=== PATIENT | female | born 1990 | race Caucasian/White ===

== ENCOUNTER 2016-08-04 00:47 | Emergency (ER) | payer SELFPAY ==
[2016-08-04 01:24] VITALS: BP 114/65
== END 2016-08-04 05:52 | disposition left against medical advice (07) ==
LOC: ER 00:47
DX: Z53.9 Procedure and treatment not carried out, unspecified reason (principal); M25.511 Pain in right shoulder

== ENCOUNTER 2016-08-20 08:38 | Emergency (ER) | payer SELFPAY ==
--- NOTE | 2016-08-20 09:43 | ER Document Report ---
ED GI/ - General Chief Complaint: Vaginal Bleeding Stated Complaint: VAGINAL BLEEDING Notes: The patient is a 26-year-old female presents with 2 days of increasing vaginal bleeding and passing clots. She had a positive test last week and her blood type is A-. She is also feeling slightly lightheaded. Patient is actively bleeding while in the emergency room. Denies nausea, vomiting, fevers , urinary symptoms, flank pain or rash. I have greeted and performed a rapid initial assessment of this patient. A comprehensive ED assessment and evaluation of the patient, analysis of test results and completion of the medical decision making process will be conducted by additional ED providers. TRAVEL OUTSIDE OF THE U.S. IN LAST 30 DAYS: No - Related Data Allergies/Adverse Reactions: hydrocodone [Hydrocodone] Allergy (Verified 04/09/14 16:33) Hives Past Medical History - General Information source: Patient Last Menstrual Period: 07/13/16 - Social History Smoking Status: Unknown if Ever Smoked Family History: Reviewed & Not Pertinent Renal/ Medical History: Denies: Hx Peritoneal Dialysis Psychiatric Medical History: Reports: Hx Anxiety, Hx Attention Deficit Hyperactivity Disorder Traumatic Medical History: Reports: Hx Fractures Past Surgical History: Reports: Hx Section - Immunizations Immunizations up to date: Yes Hx Diphtheria, Pertussis, Tetanus Vaccination: No Physical Exam - Vital signs Vitals: Temp Pulse Resp BP Pulse Ox 97.8 F 84 16 141/81 H 98 08/20/16 08:40 08/20/16 08:40 08/20/16 08:40 08/20/16 08:40 08/20/16 08:40 Course - Vital Signs Vital signs: Temp Pulse Resp BP Pulse Ox 97.6 F 66 16 121/62 97 08/20/16 12:58 08/20/16 12:58 08/20/16 12:58 08/20/16 12:58 08/20/16 12:58 - Laboratory Laboratory results interpreted by me: 08/20/16 08:48 Urine Protein 100 H Urine Blood LARGE H Discharge - Discharge Clinical Impression: Dysfunctional uterine bleeding Condition: Stable Disposition: HOME, SELF-CARE Instructions: Dysfunctional Uterine Bleeding ([facility]) Additional Instructions: Follow-up with gynecology for irregular menstrual bleeding. It is important that you tell your sexual partner about your recent diagnosis of Trichomonas and that they can be treated. Return for worsening bleeding, fevers, or other worrisome symptoms. Forms: Parent Work Note Referrals: LISA GUZMAN, [RUTHY DOSHI] - Follow up as needed
[2016-08-20 10:02] LABS: APPEARANCE,URINE CLOUDY; BILIRUBIN,URINE NEGATIVE (NEGATIVE); GLUCOSE, URINE NEGATIVE (NEGATIVE); KETONES,URINE NEGATIVE (NEGATIVE); LEUKOCYTE ESTERASE,URINE NEGATIVE (NEGATIVE); NITRITE,URINE NEGATIVE (NEGATIVE); PROTEIN,URINE 100 mg/dL (NEGATIVE); URINE SPECIFIC GRAVITY 1.029; UROBILINOGEN,URINE NEGATIVE mg/dL (<2.0)
--- NOTE | 2016-08-20 11:13 | ER Document Report ---
ED GI/ - General Mode of Arrival: Ambulatory Information source: Patient TRAVEL OUTSIDE OF THE U.S. IN LAST 30 DAYS: No - HPI Patient complains to provider of: Other Timing/Duration: Persistent Quality of pain: No pain Similar symptoms previously: Yes Recently seen / treated by doctor: Yes - General Chief Complaint: Vaginal Bleeding Stated Complaint: VAGINAL BLEEDING Notes: Patient is a 26-year-old female that presents to the emergency department today with complaints of vaginal bleeding for two weeks. Patient states that she was seen at a hospital in [place] initially and she was told she was or could be miscarrying. Patient states that 3 days ago she followed up at [facility], she was told she was not but she continued to bleed. Patient presents today complaining of persistent "bright red" blood. Patient is . Patient states she has had urinary frequency. Patient also adds that she was diagnosed with trichomonas 2 weeks ago in [place] however she has not taken any of the medications that she was prescribed because she cannot afford them. Patient denies any nausea, vomiting, or diarrhea. (FELIZ GRIFFITH) - Related Data Allergies/Adverse Reactions: hydrocodone [Hydrocodone] Allergy (Verified 04/09/14 16:33) Hives Past Medical History - General Information source: Patient Last Menstrual Period: 07/13/16 - Social History Smoking Status: Current Every Day Smoker Cigarette use (# per day): Yes Frequency of alcohol use: Social Drug Abuse: Marijuana Lives with: Family Family History: Reviewed & Not Pertinent Psychiatric Medical History: Reports: Hx Anxiety, Hx Attention Deficit Hyperactivity Disorder Traumatic Medical History: Reports: Hx Fractures Past Surgical History: Reports: Hx Section - Immunizations Immunizations up to date: Yes Hx Diphtheria, Pertussis, Tetanus Vaccination: No Review of Systems - Review of Systems Constitutional: No symptoms reported EENT: No symptoms reported Cardiovascular: No symptoms reported Respiratory: No symptoms reported Gastrointestinal: denies: Diarrhea, Nausea, Vomiting Genitourinary: See HPI, Frequency Female Genitourinary: See HPI, Last menstrual period - First week of July, - ?, Vaginal bleeding Musculoskeletal: No symptoms reported Skin: No symptoms reported Hematologic/Lymphatic: No symptoms reported Neurological/Psychological: No symptoms reported -: Yes All other systems reviewed and negative Physical Exam - Vital signs Vitals: Temp Pulse Resp BP Pulse Ox 97.8 F 84 16 141/81 H 98 04/13/17 08:40 08/20/16 08:40 08/20/16 08:40 08/20/16 08:40 08/20/16 08:40 - Notes Notes: Physical Exam: General: Alert, appears well. HEENT: Normocephalic. Atraumatic. PERRL. Extraocular movements intact. Oropharynx clear. Neck: Supple. Non-tender. Respiratory: No respiratory distress. Clear and equal breath sounds bilaterally. Cardiovascular: Regular rate and rhythm. Abdominal: Normal Inspection. Non-tender. No distension. Normal Bowel Sounds. Extremities: Moves all four extremities. Upper extremities: Normal inspection. Normal ROM. Lower extremities: Normal inspection. No edema. Normal ROM. Neurological: Normal cognition. AAOx4. Normal speech. Psychological: Normal affect. Normal Mood. Skin: Warm. Dry. Normal color. (FELIZ GRIFFITH) Course - Re-evaluation Re-evalutation: 08/20/16 11:15 08/20/16 12:33 Patient reports she has irregular bleeding with cramps. Her last menstrual period was at beginning of July. She said about 10 days ago she started having some bleeding so she went to an outside hospital who diagnosed her with Trichomonas and said that her test was positive. The patient followed up with [facility] last week and they did a blood test and told her that she was not . Patient says that she continues to have some bleeding with some clots and that she is sure that she is having a miscarriage. She is not using more than 1 pad every 2-3 hours. She has been working and has taken time off for medical evaluation and states she can't miss any more work or she will lose her job. The patient states that she did not get the prescription filled for the Trichomonas because all of her money went to her rent. The patient denies any fevers chills or sweats. No nausea vomiting diarrhea. Patient has had some lower abdominal cramping and low back pain. Patient says she has chronic back pain and this feels a little more crampy. The patient denies any vaginal discharge. On exam, patient alert and oriented in no distress vital signs the patient is afebrile nontoxic appearing. She is hemodynamically stable. Patient with nontender abdominal exam normal bowel sounds no peritoneal findings. Her exam is otherwise unremarkable. Medical decision making: Patient just had a pelvic exam 10 days ago and was diagnosed with Trichomonas and did not fill her prescription. We will give her a one-time Flagyl dose of 2 g here in the emergency department to treat this and she has been counseled to talk to her sexual partner in order to have him treated as well. The patient also has a negative beta Quant. There is no evidence of the patient was ever in the last several days. This was discussed with the patient. Pelvic exam was deferred as patient just had pelvic exam 3 days ago, she does not have any sidedness to her crampy pain, and has limited bleeding which seems most likely to be a menstrual period .We discussed dysfunctional uterine bleeding and need for follow-up with gynecology should she continue to have problems with her periods. She indicates that she is not on any hormones and has never taken the Depo shot previously. She will follow-up with [facility] [employer] [facility]. 08/20/16 12:37 (LUPIS RASMUSSEN) - Vital Signs Vital signs: Temp Pulse Resp BP Pulse Ox 98.4 F 84 18 141/81 H 98 08/20/16 11:11 08/20/16 08:40 08/20/16 10:11 08/20/16 08:40 08/20/16 08:40 - Laboratory Laboratory results interpreted by me: 08/20/16 08:48 Urine Protein 100 H Urine Blood LARGE H Discharge - Discharge Clinical Impression: Dysfunctional uterine bleeding Condition: Stable Disposition: HOME, SELF-CARE Instructions: Dysfunctional Uterine Bleeding ([facility]) Additional Instructions: Follow-up with gynecology for irregular menstrual bleeding. It is important that you tell your sexual partner about your recent diagnosis of Trichomonas and that they can be treated. Return for worsening bleeding, fevers, or other worrisome symptoms. Forms: Parent Work Note Referrals: LISA GUZMAN, [RUTHY DOSHI] - Follow up as needed Scribe Attestation: 08/20/16 12:33 I personally performed the services described in the documentation, reviewed and edited the documentation which was dictated to the scribe in my presence, and it accurately records my words and actions. (LUPIS RASMUSSEN) Scribe Documentation - Scribe Written by Bao:: Bao Forrest, 08/20/2016 [id number] acting as scribe for :: Anders
[2016-08-20] MEDS ORDERED: METRONIDAZOLE 500 MG TABLET PO ONE (11:14)
[2016-08-20 12:59] VITALS: BP 121/62
== END 2016-08-20 13:00 | disposition home or self-care (01) ==
LOC: ER 08:38
DX: N93.8 Other specified abnormal uterine and vaginal bleeding (principal); M54.5 Low back pain
CPT/HCPCS: 36415; 81001; 81025; 84702; 86900; 86901; 99284

== ENCOUNTER 2016-08-21 19:13 | Emergency (ER) | payer SELFPAY ==
--- NOTE | 2016-08-21 20:33 | ER Document Report ---
ED Medical Screen (RME) - General Chief Complaint: Abdominal Pain Stated Complaint: DIFFICULTY BREATHING Notes: I have briefly seen and evaluated this patient in my role as physician in triage. I have initiated orders based on this initial evaluation. Please see my colleague's documentation for complete history, physical, management, diagnosis , and ultimate disposition. My brief evaluation: Patient presents stating that she was here yesterday for passing blood clots and concern for . This is now the fourth time that she has been seen by medical providers in the past 10 days. She has had 3 tests that have been negative including a serum quantitative yesterday. The patient brings a picture in of blood clots that she thinks are tissue. The patient is convinced that she is passing tissue. She has had some lower abdominal cramping. Yesterday she told us she was diagnosed with Trichomonas at a women[facility] clinic last week and was given a prescription for Flagyl but she did not fill it because she didn't have any money so yesterday we treated her with 2 g of Flagyl one time dose. She was not bleeding significantly yesterday and did not undergo another pelvic exam after it was found that she had a negative serum Quant. Given the patient is presenting yet again and now is presenting us with pictures of her blood clots, I believe the pelvic examination and pelvic ultrasound are warranted in order to definitively rule out any cause of menorrhagia and dysmenorrhea that may require intervention. TRAVEL OUTSIDE OF THE U.S. IN LAST 30 DAYS: No - Related Data Allergies/Adverse Reactions: hydrocodone [Hydrocodone] Allergy (Verified 08/21/16 20:14) Hives Past Medical History Renal/ Medical History: Denies: Hx Peritoneal Dialysis Psychiatric Medical History: Reports: Hx Anxiety, Hx Attention Deficit Hyperactivity Disorder Traumatic Medical History: Reports: Hx Fractures Past Surgical History: Reports: Hx Section - Immunizations Immunizations up to date: Yes Hx Diphtheria, Pertussis, Tetanus Vaccination: No Physical Exam - Vital signs Vitals: Temp Pulse Resp BP Pulse Ox 98.1 F 62 16 124/76 98 08/21/16 20:02 08/21/16 20:02 08/21/16 20:02 08/21/16 20:02 08/21/16 20:02 Course - Vital Signs Vital signs: Temp Pulse Resp BP Pulse Ox 98.1 F 62 16 124/76 98 08/21/16 20:02 08/21/16 20:02 08/21/16 20:02 08/21/16 20:02 08/21/16 20:02
[2016-08-21 21:00] LABS: ABSOLUTE BASOPHILS # (AUTO) 0.1 10^3/uL (0.0-0.2); ABSOLUTE EOSINOPHILS # (AUTO) 0.1 10^3/uL (0.0-0.6); ABSOLUTE LYMPHOCYTES (AUTO) 2.9 10^3/uL (0.5-4.7); ABSOLUTE MONOCYTES (AUTO) 0.7 10^3/uL (0.1-1.4); BASOPHILS % (AUTO) 0.6 % (0-2); EOSINOPHILS % (AUTO) 1.3 % (0-6); HEMATOCRIT 38.3 % (36.0-47.0); HEMOGLOBIN 12.7 g/dL (12.0-15.5); HGB HCT DIFFERENCE -0.2; LYMPHOCYTES % (AUTO) 26.6 % (13-45); MEAN CORPUSCULAR HEMOGLOBIN 27.9 pg (27.0-33.4); MEAN CORPUSCULAR HGB CONC 33.2 g/dL (32.0-36.0); MEAN CORPUSCULAR VOLUME 84 fl (80-97); MONOCYTES % (AUTO) 6.6 % (3-13); RED BLOOD COUNT 4.56 10^6/uL (3.72-5.28); RED CELL DISTRIBUTION WIDTH 16.6 % (11.5-14.0); SEGMENTED NEUTROPHILS % (AUTO) 64.9 % (42-78); WHITE BLOOD COUNT 10.7 10^3/uL (4.0-10.5)
--- NOTE | 2016-08-21 21:13 | ER Document Report ---
ED GI/ - General Chief Complaint: Abdominal Pain Stated Complaint: DIFFICULTY BREATHING Notes: The patient is a 26-year-old female who presents by EMS after she passed two clots from her vagina. She was told that she was 2 weeks ago and that she may have had a miscarriage. She was seen in the emergency room yesterday, received Rhogam and discharged home after a negative test. She does not have money to see an OB. Today, she started to feel shaky, lightheaded, had cold sweats and clammy hands. This has resolved. She denies nausea, vomiting, abdominal pain, dysuria, flank pain, fevers, chest pain, current shortness of breath, leg swelling or hemoptysis. TRAVEL OUTSIDE OF THE [place].S. IN LAST 30 DAYS: No - Related Data Allergies/Adverse Reactions: hydrocodone [Hydrocodone] Allergy (Verified 08/21/16 20:14) Hives Past Medical History - General Information source: Patient - Social History Smoking Status: Unknown if Ever Smoked Family History: Reviewed & Not Pertinent Patient has suicidal ideation: No Patient has homicidal ideation: No Renal/ Medical History: Denies: Hx Peritoneal Dialysis Psychiatric Medical History: Reports: Hx Anxiety, Hx Attention Deficit Hyperactivity Disorder Traumatic Medical History: Reports: Hx Fractures Past Surgical History: Reports: Hx Section - Immunizations Immunizations up to date: Yes Hx Diphtheria, Pertussis, Tetanus Vaccination: No Review of Systems - Review of Systems Notes: REVIEW OF SYSTEMS: CONSTITUTIONAL: -fevers, -chills EENT: -eye pain, -difficulty swallowing, -nasal congestion CARDIOVASCULAR:-chest pain, -syncope. RESPIRATORY: -cough, -SOB GASTROINTESTINAL: -abdominal pain, -nausea, -vomiting, -diarrhea GENITOURINARY: -dysuria, -hematuria, +vaginal bleeding MUSCULOSKELETAL: -back pain, -neck pain SKIN: -rash or skin lesions. HEMATOLOGIC: -easy bruising or bleeding. LYMPHATIC: -swollen, enlarged glands. NEUROLOGICAL: -altered mental status or loss of consciousness, -headache, - neurologic symptoms PSYCHIATRIC: -anxiety, -depression. ALL OTHER SYSTEMS REVIEWED AND NEGATIVE. Physical Exam - Vital signs Vitals: Temp Pulse Resp BP Pulse Ox 98.1 F 62 16 124/76 98 08/21/16 20:02 08/21/16 20:02 08/21/16 20:02 08/21/16 20:02 08/21/16 20:02 - Notes Notes: PHYSICAL EXAMINATION: GENERAL: Well-appearing, well-nourished and in no acute distress. HEAD: Atraumatic, normocephalic. EYES: Pupils equal round and reactive to light, extraocular movements intact, sclera anicteric, conjunctiva are normal. ENT: nares patent, oropharynx clear without exudates. Moist mucous membranes. NECK: Normal range of motion, supple without lymphadenopathy LUNGS: Breath sounds clear to auscultation bilaterally and equal. No wheezes rales or rhonchi. HEART: Regular rate and rhythm without murmurs ABDOMEN: Soft, nontender, normoactive bowel sounds. No guarding, no rebound. No masses appreciated. EXTREMITIES: Normal range of motion, no pitting or edema. No cyanosis. NEUROLOGICAL: Cranial nerves grossly intact. Normal speech, normal gait. Normal sensory, motor, and reflex exams. PSYCH: Normal mood, normal affect. SKIN: Warm, Dry, normal turgor, no rashes or lesions noted. Course - Re-evaluation Re-evalutation: Patient without any orthostatic changes and she is asymptomatic at this time. No active vaginal bleeding. test completed yesterday is negative. Her hemoglobin is 12.7. Instructed her to follow-up with the [facility]. Ultrasound ordered from triage is normal. - Vital Signs Vital signs: Temp Pulse Resp BP Pulse Ox 98.1 F 62 16 121/77 98 08/21/16 20:02 08/21/16 20:02 08/21/16 20:02 08/21/16 21:16 08/21/16 20:02 - Laboratory Result Diagrams: 08/21/16 20:47 Laboratory results interpreted by me: 08/21/16 08/21/16 20:47 22:45 WBC 10.7 H RDW 16.6 H Urine Protein 100 H Urine Ketones TRACE H Urine Blood LARGE H Ur Leukocyte Esterase SMALL H - Diagnostic Test Radiology reviewed: Image reviewed, Reports reviewed Radiology results interpreted by me: US Pelvis: NAD Discharge - Discharge Clinical Impression: Vaginal bleeding Condition: Good Disposition: HOME, SELF-CARE Additional Instructions: VAGINAL BLEEDING: You are having an episode of abnormal bleeding. Causes of abnormal vaginal bleeding can include miscarriage or tubal , tumors such as cancer or benign fibroids, medication effects, or hormone imbalance. Testing can eliminate unsuspected , tumors, or infection as a cause. "Dysfunctional uterine bleeding" is due to hormone imbalance, and is especially common at times when the normal cycle is disturbed -- whether by recent , use of control pills or hormones, or impending menopause. If the bleeding is innocent, most commonly a short course of hormones is given to restore the uterus to normal. Sometimes, the normal menstrual cycle corrects itself naturally. Sometimes , brief hormone therapy, or even a D&C is required. Your physician will advise you. Treatment for anemia may be required if bleeding is severe. You should rest and avoid intercourse until the bleeding is controlled. Call the doctor or return for re-examination if you feel faint, have increasing pain, or have a major increase in the amount of bleeding. NORMAL EXAM AND WORKUP: At this time, except for vaginal bleeding, your examination and workup show no significant abnormality. No significant abnormal physical findings were noted. All laboratory, EKG, and imaging (x-ray, CT scans, ultrasound) studies that were ordered show no significant abnormality. Although your examination and all studies that were ordered showed no significant abnormal finding, there are no examinations and no studies that are 100% accurate. There is always the possibility that some abnormality could exist and not be detected with physical examination or within the limits and capabilities of laboratory and other studies. You should return or follow up as you were instructed on your visit today for further evaluation if your symptoms do not resolve. FOLLOW-UP CARE: If you have been referred to a physician for follow-up care, call the physician s office for an appointment as you were instructed or within the next two days. If you experience worsening or a significant change in your symptoms (very heavy bleeding with large clots of blood, passage of tissue, more severe abdominal / pelvic pain or cramping, feeling faint or severe weakness, fever, etc.), notify the physician immediately or return to the Emergency Department at any time for re-evaluation. OBSTETRIC-GYNECOLOGIC (OB-GROCERY CLERK STOCKING) PHYSICIANS IN [place]: [facility] [address] [place], [place] [phone] [facility] [address] [place] [address] [phone] Referrals: CRISPIN LI MD [ACTIVE STAFF] - Follow up as needed
[2016-08-21 22:59] LABS: APPEARANCE,URINE SLIGHTLY-CLOUDY; BILIRUBIN,URINE NEGATIVE (NEGATIVE); GLUCOSE, URINE NEGATIVE (NEGATIVE); KETONES,URINE TRACE mg/dL (NEGATIVE); LEUKOCYTE ESTERASE,URINE SMALL (NEGATIVE); NITRITE,URINE NEGATIVE (NEGATIVE); PROTEIN,URINE 100 mg/dL (NEGATIVE); URINE SPECIFIC GRAVITY 1.002; UROBILINOGEN,URINE NEGATIVE mg/dL (<2.0)
[2016-08-22 00:28] VITALS: BP 122/75
== END 2016-08-22 00:12 | disposition home or self-care (01) ==
LOC: ER 19:13
DX: N93.8 Other specified abnormal uterine and vaginal bleeding (principal); R10.9 Unspecified abdominal pain; R06.00 Dyspnea, unspecified; Z88.6 Allergy status to analgesic agent
CPT/HCPCS: 36415; 76857; 81001; 85025; 99284

== ENCOUNTER 2016-09-14 16:53 | Emergency (ER) | payer SELFPAY ==
[2016-09-14] MEDS ORDERED: PENICILLIN V POTASSIUM 500 MG TABLET PO ONE (17:12)
[2016-09-14] MEDS ORDERED: BUPIVACAINE HCL 0.5 % INJ/PF 30 ML SDV INJ ONE (17:12)
[2016-09-14 17:14] VITALS: BP 127/74
--- NOTE | 2016-09-14 17:14 | ER Document Report ---
HPI - HPI Patient complains to provider of: toothache Context: Patient is a 26 year old female who presents with toothache #1 and #32 for 2 days. denies any difficulty swallowing, dyspnea, cough, SOB, difficulty speaking , muffled speech, foul odor or drainage. does not have a dentist No PMH NKDA - REPRODUCTIVE Reproductive: DENIES: : Past Medical History - Social History Smoking Status: Never Smoker Family History: Reviewed & Not Pertinent Renal/ Medical History: Denies: Hx Peritoneal Dialysis Psychiatric Medical History: Reports: Hx Anxiety, Hx Attention Deficit Hyperactivity Disorder Traumatic Medical History: Reports: Hx Fractures Past Surgical History: Reports: Hx Section - Immunizations Immunizations up to date: Yes Hx Diphtheria, Pertussis, Tetanus Vaccination: No Vertical Provider Document - CONSTITUTIONAL Agree With Documented VS: Yes Exam Limitations: No Limitations General Appearance: WD/WN, No Apparent Distress - INFECTION CONTROL TRAVEL OUTSIDE OF THE U.S. IN LAST 30 DAYS: No - HEENT HEENT: Atraumatic, Normocephalic Mouth Diagram: 1 - evidence of fracture and decay with surrounding tenderness, no evidence of abscess Notes: Uvula midline. Airway patent. No evidence of tonsillar enlargement, peritonsillar abscess, retropharyngeal abscess. - RESPIRATORY Respiratory: Breath Sounds Normal, No Respiratory Distress, Chest Non-Tender - CARDIOVASCULAR Cardiovascular: Regular Rate, Regular Rhythm, No Murmur Course - Re-evaluation Re-evalutation: 09/14/16 21:00 Patient received 5 mL of Sensorcaine ducal blocks for both the first in 32nd tooth. Patient responded well to treatment. Will discharge home on antibiotics and pain medication to follow up with dentist Discharge - Discharge Clinical Impression: Toothache Condition: Good Disposition: HOME, SELF-CARE Instructions: Oral Narcotic Medication ([facility]), Penicillin V K ([facility]), Toothache ( [facility]), [facility] Additional Instructions: [address] Wednesday mornings, by appointment [address] [address] [facility] [address] [facility] [address] [facility] [address] [email or web address] [address] [place] [address] Wednesday- 8:00am to 5:00 pm Will see patients from other [facility]. Charges based on income and family size and accepts Medicare, Medicaid, and Insurances Will pull molars [facility] [id number] Hours of Operation 8:00 am - 4:30 pm weekdays The following dental offices accept Medicaid: [facility] Dr. Salcedo Dr. Leahy Dr. Riojas Dr. Peacock Damian Turner, Samantha, and Carlitos oral surgery Dr. Rosa ([place]) Dr. Mccray ([place]) [facility] Drs. Schumacher ([place]) Dr. Sarmiento ([place]) [facility] Dr. Pierre ([place]) Drs. Alegre and ([place]) Medicaid Care Line Prescriptions: Oxycodone HCl/Acetaminophen [Percocet 5-325 mg Tablet] 1 - 2 tab PO Q4H PRN #15 tablet PRN Reason: Penicillin V Potassium [Penicillin Vk 500 mg Tablet] 500 mg PO QID 7 Days
== END 2016-09-14 17:33 | disposition home or self-care (01) ==
LOC: ER 16:53
PROC: 3E0T3BZ Introduction of Anesthetic Agent into Peripheral Nerves and Plexi, Percutaneous Approach (ICD-10-PCS; principal; 2016-09-14)
DX: K02.9 Dental caries, unspecified (principal); K08.89 Other specified disorders of teeth and supporting structures
CPT/HCPCS: 99282

== ENCOUNTER 2016-10-13 11:00 | Emergency (ER) | payer SELFPAY ==
[2016-10-13 11:08] VITALS: BP 126/74
--- NOTE | 2016-10-13 11:18 | ER Document Report ---
HPI - HPI Patient complains to provider of: dental pain Onset: Last week Onset/Duration: Sudden Quality of pain: Throbbing Severity: Severe Pain Level: 5 Associated Symptoms: None Exacerbated by: Food Relieved by: Denies Similar symptoms previously: Yes Recently seen / treated by doctor: Yes - ROS ROS below otherwise negative: Yes Systems Reviewed and Negative: Yes All other systems reviewed and negative - CONSTITUTIONAL Constitutional: DENIES: Fever - EENT EENT: DENIES: Nasal Drainage-Purulent Notes: right lower dental pain - NEURO Neurology: DENIES: Headache - CARDIOVASCULAR Cardiovascular: DENIES: Chest pain - RESPIRATORY Respiratory: DENIES: Trouble Breathing - GASTROINTESTINAL Gastrointestinal: DENIES: Abdominal Pain - REPRODUCTIVE Reproductive: DENIES: : - MUSCULOSKELETAL Musculoskeletal: DENIES: Extremity pain - DERM Skin Color: Normal Skin Problems: None Past Medical History - General Information source: Patient - Social History Smoking Status: Current Every Day Smoker Cigarette use (# per day): Yes Frequency of alcohol use: None Drug Abuse: Marijuana Lives with: Family Family History: Reviewed & Not Pertinent Patient has suicidal ideation: No Patient has homicidal ideation: No Psychiatric Medical History: Reports: Hx Anxiety, Hx Attention Deficit Hyperactivity Disorder Traumatic Medical History: Reports: Hx Fractures Past Surgical History: Reports: Hx Section - Immunizations Immunizations up to date: Yes Hx Diphtheria, Pertussis, Tetanus Vaccination: No Vertical Provider Document - CONSTITUTIONAL Agree With Documented VS: Yes Exam Limitations: No Limitations General Appearance: WD/WN, No Apparent Distress - INFECTION CONTROL TRAVEL OUTSIDE OF THE [place] IN LAST 30 DAYS: No - HEENT HEENT: Atraumatic, Normal ENT Exam Mouth Diagram: 1 - decay, mild gum swelling - NECK Neck: Normal Inspection, Supple - RESPIRATORY Respiratory: Breath Sounds Normal, No Respiratory Distress O2 Sat by Pulse Oximetry: 98 - CARDIOVASCULAR Cardiovascular: Regular Rate, Regular Rhythm - MUSCULOSKELETAL/EXTREMETIES Musculoskeletal/Extremeties: JULIEN ROCHA - NEURO Level of Consciousness: Awake, Alert, Appropriate - DERM Integumentary: Warm, Dry Course - Vital Signs Vital signs: Temp Pulse Resp BP Pulse Ox 98.2 F 71 16 126/74 H 98 10/13/16 11:07 10/13/16 11:07 10/13/16 11:07 10/13/16 11:07 10/13/16 11:07 Discharge - Discharge Clinical Impression: Toothache, Dental caries Condition: Good Disposition: HOME, SELF-CARE Instructions: Toothache ([facility]), Penicillin V K ([facility]), Oral Narcotic Medication ( [facility]) Additional Instructions: OTC ibuprofen 3 times a day as needed for pain Meds as prescribed Must follow-up with the dentist for further evaluation of dental problems. A list of providers is given to you today return as needed. Prescriptions: Oxycodone HCl/Acetaminophen [Percocet 5-325 mg Tablet] 1 - 2 tab PO ASDIR PRN # 10 tablet PRN Reason: Penicillin V Potassium [Penicillin Vk 250 mg Tablet] 250 mg PO Q6 #40 tablet
== END 2016-10-13 11:25 | disposition home or self-care (01) ==
LOC: ER 11:00
DX: K08.89 Other specified disorders of teeth and supporting structures (principal); K02.9 Dental caries, unspecified; F17.210 Nicotine dependence, cigarettes, uncomplicated
CPT/HCPCS: 99282

== ENCOUNTER 2016-11-23 09:48 | Emergency (ER) | payer SELFPAY ==
[2016-11-23 09:53] VITALS: BP 130/80
[2016-11-23] MEDS ORDERED: DIPHENHYDRAMINE HCL 50 MG CAPSULE PO ONE (10:43)
[2016-11-23] MEDS ORDERED: FAMOTIDINE 20 MG TABLET PO ONE (10:43)
--- NOTE | 2016-11-23 10:43 | ER Document Report ---
HPI - HPI Pain Level: 4 Notes: Patient is a 26-year-old female presents the ED complaining of a possible insect bite to her right buttock that she noticed yesterday. Patient states that she has some pruritus and burning to the area without any noted discharge, streaks, abscess. Patient denies any history of MRSA. Patient states that [place] and is surrounded by insects. Patient states that she noticed it when she was laying in her bed. She still eating and drinking without any problems. She has not applied anything to the area or taken any other [id number] meds. Denies any recent travel, sick contacts, or illness. + smoking, denies drug use otherwise. No significant PMH. Denies any fever, headache, URI, sore throat, chest pain, palpitations, syncope, cough , wheeze, shortness breath, dyspnea, abdominal pain, nausea/vomiting/diarrhea, dysuria, joint pains, muscle weakness/paralysis. - ROS Notes: REVIEW OF SYSTEMS: CONSTITUTIONAL : Denies fever, chills, or sweats. Denies recent illness. EENT: Denies eye, ear, throat, or mouth pain or symptoms. Denies nasal or sinus congestion or discharge. Denies throat, tongue, or mouth swelling or difficulty swallowing. CARDIOVASCULAR: Denies chest pain. Denies palpitations or racing or irregular heart beat. Denies ankle edema. RESPIRATORY: Denies cough, cold, or chest congestion. Denies shortness of breath, difficulty breathing, or wheezing. GASTROINTESTINAL: Denies abdominal pain or distention. Denies nausea, vomiting , or diarrhea. Denies blood in vomitus, stools, or per rectum. Denies black, tarry stools. Denies constipation. GENITOURINARY: Denies difficulty urinating, painful urination, burning, frequency, blood in urine, or discharge. MUSCULOSKELETAL: Denies back or neck pain or stiffness. Denies joint pain or swelling. SKIN: see hpi NEUROLOGICAL: Denies confusion or altered mental status. Denies passing out or loss of consciousness. Denies dizziness or lightheadedness. Denies headache. Denies weakness or paralysis or loss of use of either side. Denies problems with gait or speech. Denies sensory loss, numbness, or tingling. ALL OTHER SYSTEMS REVIEWED AND NEGATIVE. Dictation was performed using [employer] voice recognition software - REPRODUCTIVE Reproductive: DENIES: : - DERM Skin Color: Normal Past Medical History - Social History Smoking Status: Current Every Day Smoker Family History: Reviewed & Not Pertinent Patient has suicidal ideation: No Patient has homicidal ideation: No Renal/ Medical History: Denies: Hx Peritoneal Dialysis Psychiatric Medical History: Reports: Hx Anxiety, Hx Attention Deficit Hyperactivity Disorder Traumatic Medical History: Reports: Hx Fractures Past Surgical History: Reports: Hx Section - Immunizations Immunizations up to date: Yes Hx Diphtheria, Pertussis, Tetanus Vaccination: No Vertical Provider Document - CONSTITUTIONAL Agree With Documented VS: Yes Notes: PHYSICAL EXAMINATION: GENERAL: Well-appearing, well-nourished and in no acute distress. NECK: Normal range of motion, supple without lymphadenopathy LUNGS: Breath sounds clear to auscultation bilaterally and equal. No wheezes rales or rhonchi. HEART: Regular rate and rhythm without murmurs, rubs, gallops. ABDOMEN: Soft, nontender, nondistended abdomen. No guarding, no rebound. No masses appreciated. Normal bowel sounds present. No CVA tenderness bilaterally. Musculoskeletal: ext b/l: FROM to passive/active. Strength 5+/5. Extremities: No cyanosis, clubbing, or edema b/l. Peripheral pulses 2+. Capillary refill less than 3 seconds. NEUROLOGICAL: Cranial nerves grossly intact. Normal speech, normal gait. Normal sensory, motor exams PSYCH: Normal mood, normal affect. SKIN: Rt buttock: + erythemic maculopapular area (approx 2cm), without induration, d/c, abscess/streaks noted. + mild tenderness to the erythemic area. Appears to be superficial, no need for I&D at this time. No prox lymphadenopathy. - INFECTION CONTROL TRAVEL OUTSIDE OF THE [place] IN LAST 30 DAYS: No - RESPIRATORY O2 Sat by Pulse Oximetry: 98 Course - Re-evaluation Re-evalutation: 11/23/16 10:50 Patient is an afebrile, well-hydrated, 26-year-old female presents the ED with a superficial, mild cellulitis to the right buttock. ? Insect bite. Vitals are stable. PE otherwise unremarkable. No incision and drainage is warranted at this time. Low suspicion for any necrotizing fasciitis, sepsis, systemic illness, or any noted necrotic tissue. patient notes pruritus and burning to the area. Benadryl 50 mg p.o. along with Pepcid 20 mg p.o. given in the office today. I will send her home with a prescription for Bactrim twice a day for 10 days. Conservative measures otherwise for symptoms with close monitoring. Recheck/establish with a PCM this week. Consider consult with dermatology. Return to ED with any worsening/concerning symptoms otherwise as reviewed. Patient is in agreement. - Vital Signs Vital signs: Temp Pulse Resp BP Pulse Ox 98.2 F 86 16 130/80 H 98 11/23/16 09:51 11/23/16 09:51 11/23/16 09:51 11/23/16 09:51 11/23/16 09:51 Discharge - Discharge Clinical Impression: Insect bite Qualifiers: Encounter type: initial encounter Qualified Code(s): W57.XXXA - Bitten or stung by nonvenomous insect and other nonvenomous arthropods, initial encounter Condition: Stable Disposition: HOME, SELF-CARE Instructions: Insect Bites ([facility]) Additional Instructions: Keep the skin clean Bacitracin if any break in the skin Tylenol/ibuprofen as needed Epsom salt soaks may help Warm compresses Take antibiotic as directed May take oral benadryl/pepcid as well Recheck/establish with PCM this week--see provided list or check in with any of the urgent cares as most also perform primary care Return to the ED with any development of fever, headache, chest pain, palpitations, shortness of breath, wheezing, trouble breathing, swelling of the lip/tongue/throat, trouble swallowing, abdominal pain, nausea/vomiting/diarrhea , trouble urinating, abscess, purulent discharge, red streaks, worsening pain, or any other worsening/concerning symptoms otherwise as needed. Prescriptions: Sulfamethoxazole/Trimethoprim [Bactrim Ds Tablet] 1 each PO BID #20 tablet Forms: Elevated Blood Pressure, Smoking Cessation Education, Return to Work Referrals: [facility] [Provider Group] - Follow up as needed MARA MONDRAGON DO [ACTIVE STAFF] - Follow up as needed [facility] [Provider Group] - Follow up as needed
== END 2016-11-23 10:50 | disposition home or self-care (01) ==
LOC: ER 09:48
DX: S30.860A Insect bite (nonvenomous) of lower back and pelvis, initial encounter (principal); W57.XXXA Bitten or stung by nonvenomous insect and other nonvenomous arthropods, initial encounter; F17.200 Nicotine dependence, unspecified, uncomplicated
CPT/HCPCS: 99281

== ENCOUNTER 2017-06-25 23:46 | Emergency (ER) | payer SELFPAY ==
--- NOTE | 2017-06-26 02:03 | ER Document Report ---
ED GI/ - General Chief Complaint: Back Pain Stated Complaint: LOW BACK PAIN Time Seen by Provider: 06/26/17 01:42 Notes: Patient is a 27 year old female that comes to the ED for chief complaint of general pain over her abdomen, she states she has been hurting for a while now but over the past few days it has become more noticeable, she states she feels distended. She states she had nausea and vomiting about 5 days ago but none since. She is able to eat and drink. She had a normal bowel movement earlier today. She also states she had pain in her mid to lower back but this has been going on for months to years. LMP within the past month. She states she is not sexually active, she denies vaginal bleeding or discharge, she denies dysuria, fever or chills. Only past medical history she reports to me is C- section, she states she smokes marijuana occasionally, she smokes, she denies alcohol, she denies any daily medications prescribed. TRAVEL OUTSIDE OF THE [place] IN LAST 30 DAYS: No - Related Data Allergies/Adverse Reactions: hydrocodone [Hydrocodone] Allergy (Verified 11/23/16 09:51) Marj Past Medical History - General Information source: Patient - Social History Smoking Status: Never Smoker Frequency of alcohol use: Occasional Drug Abuse: Marijuana Lives with: Alone Family History: Reviewed & Not Pertinent Renal/ Medical History: Denies: Hx Peritoneal Dialysis Psychiatric Medical History: Reports: Hx Anxiety, Hx Attention Deficit Hyperactivity Disorder Traumatic Medical History: Reports: Hx Fractures Past Surgical History: Reports: Hx Section - Immunizations Immunizations up to date: Yes Hx Diphtheria, Pertussis, Tetanus Vaccination: No Review of Systems - Review of Systems Constitutional: No symptoms reported EENT: No symptoms reported Cardiovascular: No symptoms reported Respiratory: No symptoms reported Gastrointestinal: See HPI Genitourinary: See HPI Female Genitourinary: No symptoms reported Musculoskeletal: No symptoms reported Skin: No symptoms reported Hematologic/Lymphatic: No symptoms reported Neurological/Psychological: No symptoms reported Physical Exam - Vital signs Vitals: Temp Pulse Resp BP Pulse Ox 98.2 F 63 18 112/61 96 06/26/17 00:51 06/26/17 00:51 06/26/17 00:51 06/26/17 00:51 06/26/17 00:51 Interpretation: Normal - General General appearance: Appears well, Alert In distress: None - Patient sleeping, easily arousable, well-appearing - HEENT Head: Normocephalic, Atraumatic Eyes: Normal Pupils: PERRL - Respiratory Respiratory status: No respiratory distress Chest status: Nontender Breath sounds: Normal Chest palpation: Normal - Cardiovascular Rhythm: Regular. No: Tachycardia Heart sounds: Normal auscultation, S1 appreciated, S2 appreciated Murmur: No - Abdominal Inspection: Normal Distension: No: No distension Bowel sounds: Normal Tenderness: Nontender - Soft and benign abdomen with no tenderness noted, mild distention, questionable tiny nontender umbilical hernia with no evidence of incarceration, no induration or erythema of the area, normal abdominal exam otherwise Organomegaly: No organomegaly - Back Back: Normal, Nontender - Extremities General upper extremity: Normal inspection, Nontender, Normal color, Normal ROM , Normal temperature General lower extremity: Normal inspection, Nontender, Normal color, Normal ROM , Normal temperature, Normal weight bearing. No: Selina's sign - Neurological Neuro grossly intact: Yes Cognition: Normal Orientation: AAOx4 Kade Coma Scale Eye Opening: Spontaneous Kade Coma Scale Verbal: Oriented [place] Coma Scale Motor: Obeys Commands [place] Coma Scale Total: 15 Speech: Normal Motor strength normal: LUE, RUE, LLE, RLE Sensory: Normal - Psychological Associated symptoms: Normal affect, Normal mood - Skin Skin Temperature: Warm Skin Moisture: Dry Skin Color: Normal Course - Re-evaluation Re-evalutation: Acute abdominal series shows retained stool but no obstruction or concerning findings. This is consistent with patient's distention but nontender abdomen. No evidence of hernia incarceration. Urinary tract infection present, slight contamination in the urine but patient has suprapubic tenderness reported. Treating for urinary tract infection, giving stool softener, patient states she is not sexually active and has no vaginal discharge so I do not suspect a pelvic infection. HCG is negative. Discussed findings, follow-up, recommendations, return precautions. Patient states understanding and agreement. - Vital Signs Vital signs: Temp Pulse Resp BP Pulse Ox 98.2 F 69 18 98/68 L 98 06/26/17 00:51 06/26/17 05:36 06/26/17 05:36 06/26/17 05:36 06/26/17 05:36 - Laboratory Result Diagrams: 06/26/17 02:10 02/17/18 02:10 Laboratory results interpreted by me: 06/26/17 06/26/17 06/26/17 02:10 02:10 03:24 RDW 17.1 H Chloride 109 H AST 11 L Urine Protein 30 H Urine Blood MODERATE H Urine Urobilinogen 4.0 H Ur Leukocyte Esterase MODERATE H Discharge - Discharge Clinical Impression: Abdominal pain Qualifiers: Abdominal location: generalized Qualified Code(s): R10.84 - Generalized abdominal pain Condition: Stable Disposition: HOME, SELF-CARE Additional Instructions: Your workup indicates retained stool in your colon but no concerning abnormalities. Your workup also shows urinary tract infection. Take Colace stool softener for the next several days, increase fiber in your diet. Take cephalexin antibiotic as directed for urinary tract infection. Follow-up with primary care. Return if you worsen including vomiting, severe pain, temperature of 100.4 or greater, or any other concerning symptoms. Prescriptions: Cephalexin Monohydrate [Keflex 500 mg Capsule] 500 mg PO Q6H 5 Days #20 capsule Docusate Sodium [Colace 100 mg Capsule] 100 mg PO ASDIR PRN #30 capsule PRN Reason: Forms: Return to Work
[2017-06-26 02:27] LABS: ABSOLUTE BASOPHILS # (AUTO) 0.1 10^3/uL (0.0-0.2); ABSOLUTE EOSINOPHILS # (AUTO) 0.2 10^3/uL (0.0-0.6); ABSOLUTE LYMPHOCYTES (AUTO) 3.4 10^3/uL (0.5-4.7); ABSOLUTE MONOCYTES (AUTO) 0.7 10^3/uL (0.1-1.4); BASOPHILS % (AUTO) 0.7 % (0-2); EOSINOPHILS % (AUTO) 1.5 % (0-6); HEMATOCRIT 38.2 % (36.0-47.0); HEMOGLOBIN 12.5 g/dL (12.0-15.5); LYMPHOCYTES % (AUTO) 32.8 % (13-45); MEAN CORPUSCULAR HEMOGLOBIN 27.6 pg (27.0-33.4); MEAN CORPUSCULAR HGB CONC 32.8 g/dL (32.0-36.0); MEAN CORPUSCULAR VOLUME 84 fl (80-97); MONOCYTES % (AUTO) 6.7 % (3-13); PLATELET COUNT 231 10^3/uL (150-450); RED BLOOD COUNT 4.54 10^6/uL (3.72-5.28); RED CELL DISTRIBUTION WIDTH 17.1 % (11.5-14.0); SEGMENTED NEUTROPHILS % (AUTO) 58.3 % (42-78); TOTAL CELLS COUNTED % (AUTO) 100 %; WHITE BLOOD COUNT 10.4 10^3/uL (4.0-10.5)
[2017-06-26 02:44] LABS: ALANINE AMINOTRANSFERASE 13 U/L (9-52); ALKALINE PHOSPHATASE 60 U/L (38-126); ANION GAP 12 (5-19); ASPARTATE AMINO TRANSFERASE 11 U/L (14-36); BILIRUBIN,DIRECT 0.2 mg/dL (0.0-0.4); BILIRUBIN,TOTAL 0.2 mg/dL (0.2-1.3); BLOOD UREA NITROGEN 13 mg/dL (7-20); CALCIUM 9.9 mg/dL (8.4-10.2); CARBON DIOXIDE 24 mmol/L (22-30); CHLORIDE 109 mmol/L (98-107); GLUCOSE 108 mg/dL (75-110); POTASSIUM 4.1 mmol/L (3.6-5.0); SODIUM 144.6 mmol/L (137-145); TOTAL PROTEIN 6.7 g/dL (6.3-8.2)
[2017-06-26 03:56] LABS: APPEARANCE,URINE CLOUDY; BILIRUBIN,URINE NEGATIVE (NEGATIVE); COLOR,URINE AMBER; GLUCOSE, URINE NEGATIVE (NEGATIVE); KETONES,URINE NEGATIVE (NEGATIVE); LEUKOCYTE ESTERASE,URINE MODERATE (NEGATIVE); NITRITE,URINE NEGATIVE (NEGATIVE); PROTEIN,URINE 30 mg/dL (NEGATIVE); URINE SPECIFIC GRAVITY 1.028
--- NOTE | 2017-06-26 04:49 | RADIOLOGY REPORT (SQ) ---
EXAM DESCRIPTION: ACUTE ABDOMEN SERIES CLINICAL HISTORY: 27 years, Female, mid abd pain and swelling COMPARISON: None. FINDINGS: No acute cardiopulmonary findings. Intestinal gas pattern is within normal limits. Moderate distal transverse and left colonic stool retention. No suspicious calcification. Intact bony structures IMPRESSION: No acute findings.
[2017-06-26] MEDS ORDERED: CEPHALEXIN 500 MG CAPSULE PO ONE (05:16)
[2017-06-26 05:37] VITALS: BP 98/68
== END 2017-06-26 05:36 | disposition home or self-care (01) ==
LOC: ER 23:46
DX: R10.84 Generalized abdominal pain (principal); R11.2 Nausea with vomiting, unspecified; M54.5 Low back pain; M54.9 Dorsalgia, unspecified
CPT/HCPCS: 36415; 74022; 80053; 81001; 81025; 85025; 99284

== ENCOUNTER 2017-08-28 09:04 | Emergency (ER) | payer SELFPAY ==
[2017-08-28 09:11] VITALS: BP 119/80
[2017-08-28] MEDS ORDERED: IBUPROFEN 600 MG TABLET PO ONE (09:26)
--- NOTE | 2017-08-28 09:32 | ER Document Report ---
ED General - General Chief Complaint: Sunburn Stated Complaint: SUNBURN/BLISTERS Time Seen by Provider: 08/28/17 09:17 Mode of Arrival: Ambulatory Information source: Patient Notes: 27-year-old female presents to ED for complaint of sunburn 2 days. 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 She states she went into work and they told her she needed a note in order to go back to work. TRAVEL OUTSIDE OF THE [place] IN LAST 30 DAYS: No - HPI Onset: Other - 2 days Onset/Duration: Gradual Quality of pain: Burning Severity: Severe Pain Level: 5 Associated symptoms: Other - Sunburn Exacerbated by: Movement Relieved by: Denies Similar symptoms previously: Yes Recently seen / treated by doctor: No - Related Data Allergies/Adverse Reactions: hydrocodone [Hydrocodone] Allergy (Verified 08/28/17 09:05) Hives Past Medical History - General Information source: Patient - Social History Smoking Status: Current Every Day Smoker Cigarette use (# per day): Yes - Half pack a day Chew tobacco use (# tins/day): No Smoking Education Provided: Yes - 4 minutes Frequency of alcohol use: Occasional Drug Abuse: Marijuana 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 denies: Arthritis, CAD, Hyperlipidemia, Malignancy, Thyroid Disfunction Patient has suicidal ideation: No Patient has homicidal ideation: No - Past Medical History Cardiac Medical History: Reports: None Pulmonary Medical History: Reports: None EENT Medical History: Reports: None Neurological Medical History: Reports: None Endocrine Medical History: Reports: None Renal/ Medical History: Reports: None Malignancy Medical History: Reports: None GI Medical History: Reports: None Musculoskeltal Medical History: Reports Hx Musculoskeletal Trauma - Hand Skin Medical History: Reports None Psychiatric Medical History: Reports: Hx Anxiety, Hx Attention Deficit Hyperactivity Disorder Traumatic Medical History: Reports: Hx Fractures - Hand Infectious Medical History: Reports: None Past Surgical History: Reports: Hx Section - Immunizations Immunizations up to date: Yes Hx Diphtheria, Pertussis, Tetanus Vaccination: Yes Review of Systems - Review of Systems Constitutional: No symptoms reported EENT: No symptoms reported Cardiovascular: No symptoms reported Respiratory: No symptoms reported Gastrointestinal: No symptoms reported Genitourinary: No symptoms reported Female Genitourinary: No symptoms reported Musculoskeletal: No symptoms reported Skin: Other - Red tender skin to the front of her body. No redness or tenderness to the back or back of the legs and arms Hematologic/Lymphatic: No symptoms reported Neurological/Psychological: No symptoms reported -: Yes All other systems reviewed and negative Physical Exam - Vital signs Vitals: Temp Pulse Resp BP Pulse Ox 97.2 F 68 14 119/80 98 08/28/17 09:09 08/28/17 09:09 08/28/17 09:09 08/28/17 09:09 08/28/17 09:09 Interpretation: Normal - General General appearance: Appears well, Alert - HEENT Head: Normocephalic, Atraumatic Eyes: Normal Pupils: PERRL - Respiratory Respiratory status: No respiratory distress Chest status: Nontender Breath sounds: Normal Chest palpation: Normal - Cardiovascular Rhythm: Regular Heart sounds: Normal auscultation Murmur: No - Abdominal Inspection: Normal Distension: No distension Bowel sounds: Normal Tenderness: Nontender Organomegaly: No organomegaly - Back Back: Normal, Nontender - Extremities General upper extremity: Normal inspection, Nontender, Normal color, Normal ROM , Normal temperature General lower extremity: Normal inspection, Nontender, Normal color, Normal ROM , Normal temperature, Normal weight bearing. No: Selina's sign - Neurological Neuro grossly intact: Yes Cognition: Normal Orientation: AAOx4 Kade Coma Scale Eye Opening: Spontaneous [place]ade Coma Scale Verbal: Oriented [place] Coma Scale Motor: Obeys Commands [place] Coma Scale Total: 15 Speech: Normal Motor strength normal: LUE, RUE, LLE, RLE Sensory: Normal - Psychological Associated symptoms: Normal affect, Normal mood - Skin Skin Temperature: Warm Skin Moisture: Dry Skin Color: Normal Skin irregularity: other - Sunburn Location of irregularity: Face, Abdomen, Chest, Extremities - Front of extremities Character of irregularity: Erythematous Irregularity with: Tenderness, Other - Sunburn Course - Re-evaluation Re-evalutation: 08/28/17 09:33 Patient was treated with ibuprofen instructed to get some moisturizer or after sunscreen and to drink lots of cold water and take cool baths stay out of the sun for at least 2 weeks. Patient verbalized understanding and agreement with plan. - Vital Signs Vital signs: Temp Pulse Resp BP Pulse Ox 97.2 F 68 14 119/80 98 08/28/17 09:09 08/28/17 09:09 08/28/17 09:09 08/28/17 09:09 08/28/17 09:09 Discharge - Discharge Clinical Impression: Sunburn Condition: Stable Disposition: HOME, SELF-CARE Instructions: Family Physicians / Practices Additional Instructions: Sunburn Sunburn is caused by prolonged exposure to ultraviolet light. This can be natural sunlight or a tanning bed. Your symptoms may include redness or blistering of the skin, fatigue, weakness, and chills that last two or three days. Treatment includes antiinflammatory pain medication, rest, cooling baths, and moisturizing skin cream. Occasionally, cortisone-type medicine is required for severe sunburns. Antihistamines may be helpful if itching is severe as you heal. You should avoid any exposure to ultraviolet light for the next week or two so that further skin damage can be avoided. In the future, you should use sunscreens. Frequent or prolonged ultraviolet light exposure can cause premature skin aging, skin cancers, and wrinkles. Call the doctor if you are not improving in two or three days. Report any drainage, increasing swelling, fever, chills, or other signs of infection. Ibuprofen Ibuprofen is an excellent, safe drug for pain control. In addition, it has potent antiinflammatory effects which are beneficial, especially in the treatment of injuries, arthritis, or tendonitis. It's best to take ibuprofen with food. Persons with ulcer disease or allergy to aspirin should notify their physician of this before taking ibuprofen. Take the medication exactly as prescribed. Don't take additional doses unless instructed to do so by your doctor. If you develop wheezing, shortness of breath, hives, faintness, stomach pain, vomiting, or dark black stools, return for re-evaluation at once. FOLLOW-UP CARE: If you have been referred to a physician for follow-up care, call the physician s office for an appointment as you were instructed or within the next two days. If you experience worsening or a significant change in your symptoms, notify the physician immediately or return to the Emergency Department at any time for re-evaluation. Forms: Smoking Cessation Education, Return to Work
== END 2017-08-28 09:38 | disposition home or self-care (01) ==
LOC: ER 09:04
DX: L55.9 Sunburn, unspecified (principal); F17.210 Nicotine dependence, cigarettes, uncomplicated
CPT/HCPCS: 99282; 99406

== ENCOUNTER 2017-10-02 15:36 | Emergency (ER) | payer SELFPAY ==
[2017-10-02 15:42] VITALS: BP 124/80
[2017-10-02] MEDS ORDERED: NYSTATIN/TRIAMCIN OINTMENT 15 GM TP ONE (15:58)
--- NOTE | 2017-10-02 16:03 | ER Document Report ---
ED Extremity Problem, Lower - General Chief Complaint: Foot Injury Stated Complaint: FOOT CONDITION Time Seen by Provider: 10/02/17 15:44 Mode of Arrival: Ambulatory Information source: Patient Notes: 27-year-old female presented ED for complaint of athlete's foot to her left foot that does not improve with [id number] creams. She states is starting to crack and make painful sores. She is alert and oriented pupils equal and react to light speaking in full sentences walks with a even steady gait. TRAVEL OUTSIDE OF THE [place] IN LAST 30 DAYS: No - HPI Patient complains to provider of: Pain. No: Injury Location: Foot - Left foot athlete's foot Occurred: Other - Gradual Onset/Duration: Gradual Quality of pain: Sharp - From athlete's foot Severity: Severe Context: Recent immobilization, Other Associated symptoms: Painful ambulation Exacerbated by: Hanging down, Movement, Walking Relieved by: Nothing - Related Data Allergies/Adverse Reactions: hydrocodone [Hydrocodone] Allergy (Verified 10/02/17 15:37) Hives Past Medical History - General Information source: Patient - Social History Smoking Status: Current Every Day Smoker Cigarette use (# per day): Yes - One half pack per day Chew tobacco use (# tins/day): No Smoking Education Provided: Yes - Minutes Frequency of alcohol use: None Drug Abuse: None Occupation: [employer] Lives with: Parents Family History: COPD, CVA, DM, Hypertension. denies: Arthritis, CAD, Hyperlipidemia, Malignancy, Thyroid Disfunction Patient has suicidal ideation: No Patient has homicidal ideation: No - Past Medical History Cardiac Medical History: Reports: None Pulmonary Medical History: Reports: None EENT Medical History: Reports: None Neurological Medical History: Reports: None Endocrine Medical History: Reports: None Renal/ Medical History: Reports: None Malignancy Medical History: Reports: None GI Medical History: Reports: None Musculoskeltal Medical History: Reports Hx Musculoskeletal Trauma - Hand Skin Medical History: Reports None Psychiatric Medical History: Reports: Hx Anxiety, Hx Attention Deficit Hyperactivity Disorder Traumatic Medical History: Reports: Hx Fractures - Hand Infectious Medical History: Reports: None Past Surgical History: Reports: Hx Section - Immunizations Immunizations up to date: Yes Hx Diphtheria, Pertussis, Tetanus Vaccination: Yes Review of Systems - Review of Systems Constitutional: No symptoms reported EENT: No symptoms reported Cardiovascular: No symptoms reported Respiratory: No symptoms reported Gastrointestinal: No symptoms reported Genitourinary: No symptoms reported Female Genitourinary: No symptoms reported Musculoskeletal: No symptoms reported Skin: Other - Athlete's foot to left foot not improving with creams Hematologic/Lymphatic: No symptoms reported Neurological/Psychological: No symptoms reported -: Yes All other systems reviewed and negative Physical Exam - Vital signs Vitals: Temp Pulse Resp BP Pulse Ox 98.9 F 67 18 124/80 96 10/02/17 15:40 10/02/17 15:40 10/02/17 15:40 10/02/17 15:40 10/02/17 15:40 Interpretation: Normal - General General appearance: Appears well, Alert - HEENT Head: Normocephalic, Atraumatic Eyes: Normal Pupils: PERRL - Respiratory Respiratory status: No respiratory distress Chest status: Nontender Breath sounds: Normal Chest palpation: Normal - Cardiovascular Rhythm: Regular Heart sounds: Normal auscultation Murmur: No - Abdominal Inspection: Normal Distension: No distension Bowel sounds: Normal Tenderness: Nontender Organomegaly: No organomegaly - Back Back: Normal, Nontender - Extremities General upper extremity: Normal inspection, Nontender, Normal color, Normal ROM , Normal temperature General lower extremity: Normal inspection, Nontender, Normal color, Normal ROM , Normal temperature, Normal weight bearing. No: Selina's sign - Neurological Neuro grossly intact: Yes Cognition: Normal Orientation: AAOx4 [place] Coma Scale Eye Opening: Spontaneous [place] Coma Scale Verbal: Oriented [place] Coma Scale Motor: Obeys Commands [place] Coma Scale Total: 15 Speech: Normal Motor strength normal: LUE, RUE, LLE, RLE Sensory: Normal - Psychological Associated symptoms: Normal affect, Normal mood - Skin Skin Temperature: Warm Skin Moisture: Dry Skin Color: Normal Location of irregularity: Extremities - Athlete's foot with cracking to left foot Character of irregularity: Other Irregularity with: Tenderness Course - Re-evaluation Re-evalutation: 10/02/17 18:30 Patient treated with Mycolog-II and discharged home with prescription for Mycolog and encouraged to follow-up with a slag skimmer. Patient also encouraged to decrease her smoking and to ensure that her feet stay clean and dry. - Vital Signs Vital signs: Temp Pulse Resp BP Pulse Ox 98.9 F 67 18 124/80 96 10/02/17 15:40 10/02/17 15:40 10/02/17 15:40 10/02/17 15:40 10/02/17 15:40 Discharge - Discharge Clinical Impression: Athletes foot Qualifiers: Laterality: bilateral Qualified Code(s): B35.3 - Tinea pedis Condition: Stable Disposition: HOME, SELF-CARE Instructions: Family Physicians / Practices, Use of [id number] Ibuprofen ([facility]) Additional Instructions: Athletes Foot Athlete's foot is a fungus infection of the skin. It typically causes cracking and peeling between the toes. The fungus thrives in a damp, warm environment. You should wash between the toes twice daily with a mild soap (like Phisoderm, Ivory, or Neutrogena). Dry between the toes thoroughly but carefully , and allow to air-dry several minutes. Then apply antifungal medication. If your feet sweat during work or sports, you should put cotton between the toes, changing it every hour or two. Frequent changes of socks are a must, both while the infection is present and afterward. Complete healing may take two or three weeks. Recurrences are common. Keep the spaces between the toes as clean and dry as possible. If increasing swelling and redness develops, if red streaks are seen, or if fever or chilling occur, return immediately for re-evaluation. Epsom Salt Soaks Soak the wound area in a container of warm epsom salt water. If you can't get the wound area into a bucket or patel, use a folded towel soaked in the epsom salt solution and apply to the area. Use clean hot tap water (about the temperature of a very warm bath), mixing in about one (1) teaspoon for every pint of water. Two gallon --> 16 teaspoons Epsom Salts One gallon --> 8 teaspoons Epsom Salts Two quarts --> 4 teaspoons Epsom Salts One quart --> 2 teaspoons Epsom Salts Soak the wound for about 20 minutes while gently moving it around in the water. Repeat this four (4) times a day. Acetaminophen Acetaminophen may be taken for pain relief or fever control. It's much safer than aspirin, offering a wider range of "safe" dosages. It is safe during . Some brand names are Tylenol, Panadol, Datril, Anacin 3, Tempra, and Liquiprin. Acetaminophen can be repeated every four hours. The following are maximum recommended dosages: WEIGHT Dose Drops Elixir Chewable( 80mg) (LBS.) drprs=droppers tsp=teaspoon 6 40 mg .4 ml (1/2) 6-11 80 mg .8 ml (full) 1/2 tsp 1 tab 12-16 120 mg 1 1/2 drprs 3/4 tsp 1 1/2 tabs 17-23 160 mg 2 drprs 1 tsp 2 tabs 24-30 240 mg 3 drprs 1 1/2 tsp 3 tabs 30-35 320 mg 2 tsp 4 tabs 36-41 360 mg 2 1/4 tsp 4 1 /2 tabs 42-47 400 mg 2 1/2 tsp 5 tabs 48-53 480 mg 3 tsp 6 tabs 54-59 520 mg 3 1/4 tsp 6 1 /2 tabs 60-64 560 mg 3 1/2 tsp 7 tabs 65-70 600 mg 3 3/4 tsp 7 1 /2 tabs 71-76 640 mg 4 tsp 8 tabs 77-82 720 mg 4 1/2 tsp 9 tabs 83-88 800 mg 5 tsp 10 tabs >89 pounds or adults 650 mg to 900 mg Acetaminophen can be repeated every four hours. Maximum daily dose not to exceed 4000 mg. These maximum recommended dosages are slightly higher than the dosages written on the product container, but these dosages are very safe and well below the toxic dosage for acetaminophen. FOLLOW-UP CARE: If you have been referred to a physician for follow-up care, call the physician s office for an appointment as you were instructed or within the next two days. If you experience worsening or a significant change in your symptoms, notify the physician immediately or return to the Emergency Department at any time for re-evaluation. Prescriptions: Nystatin/Triamcin [Mycolog-II Ointment] 1 applic TP BID #1 tube Forms: Smoking Cessation Education, Return to Work Referrals: JOAQUÍN ARROYO DPM [ACTIVE STAFF] - Follow up as needed
== END 2017-10-02 16:26 | disposition home or self-care (01) ==
LOC: ER 15:36
DX: B35.3 Tinea pedis (principal); F17.210 Nicotine dependence, cigarettes, uncomplicated; Z71.6 Tobacco abuse counseling; Z88.5 Allergy status to narcotic agent
CPT/HCPCS: 99283; J3490

== ENCOUNTER 2018-07-11 13:44 | Emergency (ER) | payer SELFPAY ==
--- NOTE | 2018-07-11 14:26 | ER Document Report ---
ED General - General Chief Complaint: Pain With Urination Stated Complaint: BACK PAIN,PAINFUL URINATION Time Seen by Provider: 07/11/18 14:15 Primary Care Provider: JEAN CARLOS SEBASTIAN MD [ACTIVE STAFF] - Follow up in 3-5 days (primary care. ) Notes: Patient is a 28-year-old female that presents to the emergency department for chief complaint of sore throat, and change in urine, with foul odor. Patient states that last night she started having sore throat, muscle aches, low back pain, and cough and is concerned she may have the flu. She also reports having an odor to her urine, and it appeared darker. She currently rates her pain in her throat is a 1 out of 10 describes as an ache, no sick contacts that she is aware of. She also states she is been constipated recently not had normal bowel movement in several days. Denies having any fevers, chills, night sweats, chest pain, shortness of breath, difficulty breathing, nausea, vomiting or diarrhea. Past Medical History: Denies chronic medical conditions Past Surgical History: Social History: Admits to smoking cigarettes, denies alcohol or drug use. Family History: Reviewed and noncontributory for presenting illness Allergies: Reviewed, see documented allergy list. REVIEW OF SYSTEMS: Other than noted above, the 12 point review of systems was reviewed with the patient and were negative, all pertinent findings are included in the HPI. PHYSICAL EXAMINATION: Vital signs reviewed, nursing noted reviewed. GENERAL: Well-appearing, well-nourished and in no acute distress. HEAD: Atraumatic, normocephalic. EYES: Eyes appear normal, sclera anicteric, conjunctiva are normal. ENT: Moist mucous membranes. Posterior pharynx is mildly erythematous, no exudates, or significant tonsil edema, TMs appear normal bilaterally. NECK: Normal range of motion, supple without lymphadenopathy LUNGS: Breath sounds clear to auscultation bilaterally and equal. No wheezes rales or rhonchi. HEART: Regular rate and rhythm without murmurs EXTREMITIES: Nontender, good range of motion, no pitting or edema. NEUROLOGICAL: No focal neurological deficits. Moves all extremities spontaneously Motor and sensory grossly intact on exam. PSYCH: Normal mood, normal affect. SKIN: Warm, Dry, normal turgor, no rashes or lesions noted on exposed skin TRAVEL OUTSIDE OF THE [place] IN LAST 30 DAYS: No - Related Data Allergies/Adverse Reactions: hydrocodone [Hydrocodone] Allergy (Verified 07/11/18 13:47) Hives Past Medical History - Social History Smoking Status: Current Every Day Smoker Family History: COPD, CVA, DM, Hypertension. denies: Arthritis, CAD, Hyperlipidemia, Malignancy, Thyroid Disfunction Renal/ Medical History: Denies: Hx Peritoneal Dialysis Musculoskeletal Medical History: Reports Hx Musculoskeletal Trauma - Hand Psychiatric Medical History: Reports: Hx Anxiety, Hx Attention Deficit Hyperactivity Disorder Traumatic Medical History: Reports: Hx Fractures - Hand Past Surgical History: Reports: Hx Section - Immunizations Immunizations up to date: Yes Hx Diphtheria, Pertussis, Tetanus Vaccination: Yes Physical Exam - Vital signs Vitals: Temp Pulse Resp BP Pulse Ox 98.9 F 78 16 124/95 H 97 07/11/18 14:05 07/11/18 14:05 07/11/18 14:05 07/11/18 14:05 07/11/18 14:05 Course - Re-evaluation Re-evalutation: Patient seen and examined vital signs reviewed. Laboratory data ordered as appropriate for the patient's presenting symptoms and complaint, with consideration of any critical or life threatening conditions that may be associated with their obtained history and exam as noted above. Results were reviewed when available and demonstrated UA consistent with urinary tract infection, nitrite positive, will send for culture, strep testing negative. The patient was re-evaluated and was stable, not toxic appearing Evaluation was most consistent with UTI, will treat with antibiotics for 5 days of Keflex 500 mg, also given Pyridium to take as well. Patient given strict return precautions, understood plan of care. Results were discussed with the patient at this point, after careful considerat ion I feel that that patient can be discharged from the emergency department, the patient was educated treatments and reasons to return to the emergency department based on their presumed diagnosis as noted above, they were advised to followup with a primary care physician in 2-3 days. Patient was agreeable to plan of care. *Note is created using voice recognition software and may contain spelling, syntax or grammatical errors. Laboratory 07/11/18 07/11/18 14:23 14:55 Urine Color CHARITY Urine Appearance CLOUDY Urine pH 5.0 Ur Specific [place] 1.018 Urine Protein NEGATIVE Urine Glucose (UA) NEGATIVE Urine Ketones 20 H Urine Blood LARGE H Urine Nitrite POSITIVE H Urine Bilirubin NEGATIVE Urine Urobilinogen 4.0 H Ur Leukocyte Esterase MODERATE H Urine WBC (Auto) 15 Urine RBC (Auto) 8 Urine Bacteria (Auto) 3+ Squamous Epi Cells Auto 18 Urine Mucus (Auto) MANY Urine Ascorbic Acid NEGATIVE Urine HCG, Qual NEGATIVE Group A Strep Rapid NEGATIVE - Vital Signs Vital signs: Temp Pulse Resp BP Pulse Ox 98.9 F 78 16 124/95 H 97 07/11/18 14:05 07/11/18 14:05 07/11/18 14:05 07/11/18 14:05 07/11/18 14:05 - Laboratory Laboratory results interpreted by me: 07/11/18 14:55 Urine Ketones 20 H Urine Blood LARGE H Urine Nitrite POSITIVE H Urine Urobilinogen 4.0 H Ur Leukocyte Esterase MODERATE H Discharge - Discharge Clinical Impression: UTI (urinary tract infection) Qualifiers: Urinary tract infection type: site unspecified Hematuria presence: with hematuria Qualified Code(s): N39.0 - Urinary tract infection, site not specified; R31.9 - Hematuria, unspecified Pharyngitis Qualifiers: Pharyngitis/tonsillitis etiology: unspecified etiology Qualified Code(s): J02.9 - Acute pharyngitis, unspecified Condition: Stable Disposition: HOME, SELF-CARE Instructions: Urinary Tract Infection ([facility]) Additional Instructions: Please complete the entire course of antibiotics, you have also been prescribed a numbing agent for the bladder, this can cause your urine to turn orange, so do not be alarmed. If you develop worsening pain, or significant back or flank pain, do not hesitate to return to the emergency department to be evaluated sooner. If you develop fevers or vomiting, these are other reasons to return to the emergency department. In regards to your constipation, recommend using MiraLAX, 1 capful daily for the next week, he can also use [id number] magnesium citrate, this can be purchased at any drugstore, or pharmacy including [facility]. Prescriptions: Cephalexin Monohydrate [Keflex 500 mg Capsule] 500 mg PO BID 5 Days #10 capsule Phenazopyridine HCl [Pyridium 200 mg Tablet] 200 mg PO TID #15 tablet Polyethylene Glycol 3350 [Miralax] 238 gm PO DAILY #238 gm Referrals: JEAN CARLOS SEBASTIAN MD [ACTIVE STAFF] - Follow up in 3-5 days (primary care. )
[2018-07-11 15:15] LABS: APPEARANCE,URINE CLOUDY; BILIRUBIN,URINE NEGATIVE (NEGATIVE); COLOR,URINE AMBER; GLUCOSE, URINE NEGATIVE (NEGATIVE); KETONES,URINE 20 mg/dL (NEGATIVE); LEUKOCYTE ESTERASE,URINE MODERATE (NEGATIVE); NITRITE,URINE POSITIVE (NEGATIVE); PROTEIN,URINE NEGATIVE (NEGATIVE); URINE SPECIFIC GRAVITY 1.018
[2018-07-11 15:51] VITALS: BP 120/81
== END 2018-07-11 15:47 | disposition home or self-care (01) ==
LOC: ER 13:44
DX: N39.0 Urinary tract infection, site not specified (principal); R31.9 Hematuria, unspecified; J02.9 Acute pharyngitis, unspecified; F17.210 Nicotine dependence, cigarettes, uncomplicated; Z88.6 Allergy status to analgesic agent
CPT/HCPCS: 81001; 81025; 87070; 87086; 87088; 87186; 87880; 99283

== ENCOUNTER 2018-09-07 18:20 | Emergency (ER) | payer SELFPAY ==
--- NOTE | 2018-09-07 20:37 | ER Document Report ---
ED Medical Screen (RME) - General Chief Complaint: Vaginal Discharge Stated Complaint: TOOTHACHE Time Seen by Provider: 09/07/18 20:28 Mode of Arrival: Ambulatory Information source: Patient TRAVEL OUTSIDE OF THE [place] IN LAST 30 DAYS: No - HPI Patient complains to provider of: DENTAL PAIN, VAGINAL D/C Notes: 09/07/18 20:35 Patient is here with 2 complaints. She states that she has a tooth is broken off in her right lower jaw is been giving her pain for the last several days. No drainage, no swelling. No fever. She also complains of some vaginal discharge. She states that she has had a history of BACTERIAL vaginosis and this feels similar. She does complain of some mild dysuria. No abdominal pain. No flank pain. Exam Nontoxic-appearing, stable vitals. No distress. No abdominal tenderness on exam. No CVA tenderness. Significant amount of dental decay to the right lower first molar, no abscess to the gum. No sublingual swelling or induration. Plan UA, urine , urine GC chlamydia. Self swab for wet prep. An initial examination was made on the patient as part of the triage process, and it was determined a more comprehensive evaluation was necessary. Initial labs were ordered and patient was transferred to another provider in the ED who assumed care and finished evaluation and plan. - Related Data Allergies/Adverse Reactions: hydrocodone [Hydrocodone] Allergy (Verified 09/07/18 18:45) Hives Past Medical History Renal/ Medical History: Denies: Hx Peritoneal Dialysis Musculoskeltal Medical History: Reports Hx Musculoskeletal Trauma - Hand Psychiatric Medical History: Reports: Hx Anxiety, Hx Attention Deficit Hyperactivity Disorder Traumatic Medical History: Reports: Hx Fractures - Hand Past Surgical History: Reports: Hx Section - Immunizations Immunizations up to date: Yes Hx Diphtheria, Pertussis, Tetanus Vaccination: Yes Physical Exam - Vital signs Vitals: Temp Pulse Resp BP Pulse Ox 98.2 F 71 18 133/76 H 95 09/07/18 18:52 09/07/18 18:52 09/07/18 18:52 09/07/18 18:52 09/07/18 18:52 Course - Vital Signs Vital signs: Temp Pulse Resp BP Pulse Ox 98.2 F 71 18 133/76 H 95 09/07/18 18:52 09/07/18 18:52 09/07/18 18:52 09/07/18 18:52 09/07/18 18:52
[2018-09-07 21:29] LABS: RBCS (WET MOUNT) RARE RBCS SEEN; T.VAGINALIS (WET MOUNT) NO TRICHOMONAS SEEN; WBCS (WET MOUNT) 1+ WBCS SEEN; YEAST (WET MOUNT) NO YEAST SEEN
[2018-09-07 21:30] LABS: BACTERIA (WET MOUNT) 3+ BACTERIA SEEN; EPITHELIALS (WET MOUNT) 4+ EPITHELIALS SEEN
[2018-09-07 21:32] LABS: APPEARANCE,URINE CLOUDY; BILIRUBIN,URINE NEGATIVE (NEGATIVE); COLOR,URINE YELLOW; GLUCOSE, URINE NEGATIVE (NEGATIVE); KETONES,URINE NEGATIVE (NEGATIVE); LEUKOCYTE ESTERASE,URINE TRACE (NEGATIVE); NITRITE,URINE POSITIVE (NEGATIVE); PROTEIN,URINE NEGATIVE (NEGATIVE); URINE SPECIFIC GRAVITY 1.017; UROBILINOGEN,URINE NEGATIVE mg/dL (<2.0)
[2018-09-07 22:57] LABS: CHLAM PCR NOT DETECTED (NOT DETECT); GON PCR NOT DETECTED (NOT DETECT)
--- NOTE | 2018-09-08 00:20 | ER Document Report ---
ED General - General Chief Complaint: Vaginal Discharge Stated Complaint: TOOTHACHE Time Seen by Provider: 09/07/18 20:28 Mode of Arrival: Ambulatory Notes: Patient is a 28-year-old female who presents emergency department with 2 complaints. Her first complaint is about a tooth ache to tooth #28. She states that a portion of her tooth broke off yesterday. She also has complaints of vaginal discharge. Denies any fever. Denies any nausea, vomiting or diarrhea. Past medical history includes a hernia and . She does not currently take any medications. TRAVEL OUTSIDE OF THE [place] IN LAST 30 DAYS: No - Related Data Allergies/Adverse Reactions: hydrocodone [Hydrocodone] Allergy (Verified 09/07/18 18:45) Hives Past Medical History - General Information source: Patient - Social History Smoking Status: Current Every Day Smoker Family History: COPD, CVA, DM, Hypertension. denies: Arthritis, CAD, Hyperlipidemia, Malignancy, Thyroid Disfunction Patient has suicidal ideation: No Patient has homicidal ideation: No Renal/ Medical History: Denies: Hx Peritoneal Dialysis Musculoskeletal Medical History: Reports Hx Musculoskeletal Trauma - Hand Psychiatric Medical History: Reports: Hx Anxiety, Hx Attention Deficit Hyperactivity Disorder Traumatic Medical History: Reports: Hx Fractures - Hand Past Surgical History: Reports: Hx Section - Immunizations Immunizations up to date: Yes Hx Diphtheria, Pertussis, Tetanus Vaccination: Yes Review of Systems - Review of Systems Notes: REVIEW OF SYSTEMS: CONSTITUTIONAL : Denies recent illness. Denies recent unintentional weight loss. Denies fever, chills, or sweats. EENT: See HPI. Denies nasal or sinus congestion. CARDIOVASCULAR: Denies chest pain. RESPIRATORY: Denies shortness of breath, cough, congestion, difficulty breathing, or wheezing. GASTROINTESTINAL: Denies nausea, vomiting, and diarrhea. Denies abdominal pain. Denies constipation. GENITOURINARY: Denies difficulty urinating, burning, blood in urine, urgency or frequency. MUSCULOSKELETAL: Denies neck and back pain. Denies joint pain or swelling. SKIN: Denies rash, itchiness, or lesions HEMATOLOGIC : Denies easy bruising or bleeding. LYMPHATIC: Denies swollen, painful, enlarged glands. NEUROLOGICAL: Denies no numbness or tingling denies weakness. Denies headache. Denies altered mental status. Denies alteration in speech. PSYCHIATRIC: Denies stress, anxiety, alteration in sleep patterns, or depression. ASSISTANT PRODUCTION EDITOR: See HPI All other systems reviewed and negative. Physical Exam - Vital signs Vitals: Temp Pulse Resp BP Pulse Ox 98.2 F 71 18 133/76 H 95 09/07/18 18:52 09/07/18 18:52 09/07/18 18:52 09/07/18 18:52 09/07/18 18:52 - Notes Notes: PHYSICAL EXAMINATION: GENERAL: Appears well, healthy, well-nourished, no acute distress. HEAD: Normocephalic, atraumatic. EYES: PERRL, conjunctiva normal, all extraocular movements intact, sclera nonicteric ENT: Moist mucous membranes. Broken tooth noted to tooth #28. NECK: Supple, no noticeable swelling, redness, rash. Normal range of motion. LUNGS: Equal breath sounds bilaterally and clear to auscultation. No wheezes rales or rhonchi. CARDIOVASCULAR: S1-S2, regular rate, regular rhythm. Radial pulses 2+, normal. ABDOMEN: Normoactive bowel sounds. Soft, nontender, no guarding, no rebound tenderness, and no masses palpated. EXTREMITIES: Normal strength and range of motion, no pitting or edema. No cyanosis. NEUROLOGICAL: Moves all extremities upon command. Strength 5/5 in all extremities. PSYCH: Normal mood, normal affect. SKIN: Warm, dry. No rash, lesions, ulcerations noted. Normal skin turgor. Course - Re-evaluation Re-evalutation: 09/08/18 00:21 Patient is refusing to have a pelvic exam. The wet mount that was sent and done by the patient in triage shows 4+ bacteria and 3+ epithelial cells. Urinalysis is unremarkable. She will be treated with Flagyl and penicillin. I do not suspect the patient has pelvic inflammatory disease, she does not have any abdominal pain. I do not suspect the patient has a urinary tract infection, as she only has a small amount of leukocytes in her urine, consistent with her vaginal discharge. Verbal discharge instructions were given to the patient. They verbalized understanding. They are stable for discharge. - Vital Signs Vital signs: Temp Pulse Resp BP Pulse Ox 98.8 F 60 17 107/69 99 09/08/18 00:39 09/08/18 00:39 09/08/18 00:39 09/08/18 00:39 09/08/18 00:39 - Laboratory Laboratory results interpreted by me: 09/07/18 21:14 Urine Blood MODERATE H Urine Nitrite POSITIVE H Ur Leukocyte Esterase TRACE H Discharge - Discharge Clinical Impression: Toothache, Vaginal discharge Condition: Stable Disposition: HOME, SELF-CARE Instructions: Penicillin V K ([facility]), Toothache ([facility]) Additional Instructions: You have been seen in the emergency department for a toothache. You may take ibuprofen 600 mg and Tylenol 1000 mg every 6 hours as needed for the pain. You have also been given topical lidocaine. Placed that to the affected tooth as needed to help with pain. You have also been prescribed antibiotics. Please take the antibiotics as prescribed, even if you start to feel better. If you develop a fever greater than 100.4 F, or have any symptoms that are worrisome to you, please return to the emergency department. Please follow-up with a dentist this week in regards to your visit. You were also seen for vaginal discharge. You have bacterial vaginosis. Please take all your medication as prescribed. Please follow-up with your primary care provider in regards to this visit. Prescriptions: Metronidazole [Flagyl 500 mg Tablet] 500 mg PO Q6H #28 tablet Penicillin V Potassium [Penicillin Vk 500 mg Tablet] 500 mg PO BID #20 tablet
[2018-09-08] MEDS ORDERED: METRONIDAZOLE 500 MG TABLET PO ONE (00:28)
[2018-09-08 00:40] VITALS: BP 107/69
[2018-09-08] MEDS: LIDOCAINE 2% VISCOUS SOLN 20 ML UDCUP PO ONE ×2 (00:41→00:42)
== END 2018-09-08 00:44 | disposition home or self-care (01) ==
LOC: ER 18:20
DX: N89.8 Other specified noninflammatory disorders of vagina (principal); K08.89 Other specified disorders of teeth and supporting structures; F17.200 Nicotine dependence, unspecified, uncomplicated
CPT/HCPCS: 81001; 81025; 87210; 87491; 87591; 99283; J3490

== ENCOUNTER → 2019-09-11 | Outpatient (CLI) | payer SELFPAY ==
--- NOTE | 2019-09-11 16:54 | RADIOLOGY REPORT (SQ) ---
EXAM DESCRIPTION: U/S OB 14+ TRNABD 1GES W/O DOP IMAGES COMPLETED DATE/TIME: 09/11/2019 3:32 pm REASON FOR STUDY: Z34.82 ENCOUNTER FOR SUPRVSN OF NORMAL , SECOND TRIMESTER Z34.82 ENCOUNT ER FOR SUPRVSN OF NORMAL , SECOND TRI COMPARISON: None. TECHNIQUE: Static and Dynamic grayscale imaging performed of gravid uterus using transabdominal appr oach. Additional selected color Doppler and spectral images recorded. All stored on PACS. LIMITATIONS: None. FINDINGS: FETUSES SEEN:1 EGA: 17 week 0 day. Calculated using BPD,FL,HC,AC documented on images. No discrepancy with clinical dates. GREGORY: 02/19/2028. EFW: 178 grams PERCENTILE: Not applicable. Fetus less than or equal to 20 weeks gestation. DEYSI: 6.2 cm. Largest pocket 1.7 x 3.2 cm. PLACENTA: Anterior. GRADE: I PRESENTATION: Breech. ANATOMY: HEART RATE: 152 beats per minute. FOUR CHAMBER HEART: Visualized. THREE VESSEL CORD: Yes. CORD INSERTION: Visualized. KIDNEYS AND BLADDER: Visualized. Appear normal. STOMACH: Visualized. Appears normal. SPINE: Normal as visualized. BRAIN AND LATERAL VENTRICLES: Visualized. Appear normal. OTHER: No other significant finding. MATERNAL ADNEXA: Maternal ovaries not visualized. CERVICAL LENGTH: 3.4 cm. Closed. OTHER: No other significant finding. IMPRESSION: LIVING INTRAUTERINE . ESTIMATED GESTATIONAL AGE 17 WEEK 0 DAY. THE AMNIOTIC FLUID INDEX IS 6.2 CM WHICH QUALIFIES OLIGOHYDRAMNIOS. NO VISUALIZED ANOMALIES. Trimester of : Second trimester - 13 weeks 1 day to 27 weeks 6 days. TECHNICAL DOCUMENTATION: JOB ID: [id number] 2010 [employer]- All Rights Reserved Reading location - IP/workstation name: [email or web address]
== END ==
LOC: RAD 14:32
PROVIDERS: ATTEND Midwife
DX: Z34.82 Encounter for supervision of other normal pregnancy, second trimester (principal); Z3A.17 17 weeks gestation of pregnancy
CPT/HCPCS: 76805

== ENCOUNTER → 2019-10-25 | Outpatient (CLI) | payer SELFPAY ==
--- NOTE | 2019-10-25 16:12 | RADIOLOGY REPORT (SQ) ---
EXAM DESCRIPTION: U/S OB 14+ TRNABD 1GES W/O DOP IMAGES COMPLETED DATE/TIME: 10/25/2019 3:42 pm REASON FOR STUDY: Z34.82 ENCOUNTER FOR SUPERVISION OF OTHER NORMAL ,SECOND TRIMESTER Z34.82 ENCOUNTER FOR SUPRVSN OF NORMAL , SECOND TRI COMPARISON: None. TECHNIQUE: Static and Dynamic grayscale imaging performed of gravid uterus using transabdominal appr oach. Additional selected color Doppler and spectral images recorded. All stored on PACS. LIMITATIONS: None. FINDINGS: FETUSES SEEN:1 EGA: 23 weeks 2 days Calculated using BPD,FL,HC,AC documented on images. No discrepancy with clinica l dates. GREGORY: 02/19/2020 EFW: 590 grams PERCENTILE: 37th percentile DEYSI: Total DEYSI 13.3 cm, LVP 5.9 x 3.9 cm PLACENTA: Anterior grade 1 PRESENTATION: Breech ANATOMY: HEART RATE: 139 beats per minute. FOUR CHAMBER HEART: Visualized. THREE VESSEL CORD: Yes. CORD INSERTION: Visualized. KIDNEYS AND BLADDER: Visualized. Appear normal. STOMACH: Visualized. Appears normal. SPINE: Normal as visualized. BRAIN AND LATERAL VENTRICLES: Visualized. Appear normal. OTHER: No other significant finding. MATERNAL ADNEXA: Maternal ovaries not visualized. CERVICAL LENGTH: 4 cm Closed. OTHER: No other significant finding. IMPRESSION: LIVING INTRAUTERINE . ESTIMATED GESTATIONAL AGE 23 weeks 2 days NO VISUALIZED ANOMALIES. Trimester of : Second trimester - 13 weeks 1 day to 27 weeks 6 days. TECHNICAL DOCUMENTATION: JOB ID: [id number] 2010 [employer]- All Rights Reserved Reading location - IP/workstation name: [email or web address]
== END ==
LOC: RAD 15:07
PROVIDERS: ATTEND Nurse Practitioner Family
DX: Z34.82 Encounter for supervision of other normal pregnancy, second trimester (principal)
CPT/HCPCS: 76805

== ENCOUNTER 2020-02-15 08:34 | Inpatient (IN) | payer MEDICAID ==
[2020-02-09 12:14] LABS: ABSOLUTE BASOPHILS # (AUTO) 0.1 10^3/uL (0.0-0.2); ABSOLUTE EOSINOPHILS # (AUTO) 0.1 10^3/uL (0.0-0.6); ABSOLUTE LYMPHOCYTES (AUTO) 1.9 10^3/uL (0.5-4.7); ABSOLUTE MONOCYTES (AUTO) 0.7 10^3/uL (0.1-1.4); ABSOLUTE NEUT (AUTO) 8.2 10^3/uL (1.7-8.2); BASOPHILS % (AUTO) 0.8 % (0-2); EOSINOPHILS % (AUTO) 0.8 % (0-6); HEMATOCRIT 35.8 % (36.0-47.0); HEMOGLOBIN 12.5 g/dL (12.0-15.5); LYMPHOCYTES % (AUTO) 17.4 % (13-45); MEAN CORPUSCULAR HEMOGLOBIN 30.8 pg (27.0-33.4); MEAN CORPUSCULAR HGB CONC 34.8 g/dL (32.0-36.0); MEAN CORPUSCULAR VOLUME 89 fl (80-97); MONOCYTES % (AUTO) 6.6 % (3-13); PLATELET COUNT 195 10^3/uL (150-450); RED BLOOD COUNT 4.05 10^6/uL (3.72-5.28); RED CELL DISTRIBUTION WIDTH 14.1 % (11.5-14.0); SEGMENTED NEUTROPHILS % (AUTO) 74.4 % (42-78); TOTAL CELLS COUNTED % (AUTO) 100 %
[2020-02-09 12:17] LABS: APPEARANCE,URINE SLIGHTLY-CLOUDY; BILIRUBIN,URINE NEGATIVE (NEGATIVE); COLOR,URINE AMBER; GLUCOSE, URINE NEGATIVE (NEGATIVE); KETONES,URINE NEGATIVE (NEGATIVE); LEUKOCYTE ESTERASE,URINE LARGE (NEGATIVE); NITRITE,URINE NEGATIVE (NEGATIVE); PROTEIN,URINE 30 mg/dL (NEGATIVE)
[2020-02-09 12:33] LABS: URINE AMPHETAMINES SCREEN NEGATIVE; URINE BARBITURATES SCREEN NEGATIVE; URINE BENZODIAZEPINES SCREEN NEGATIVE; URINE COCAINE SCREEN NEGATIVE; URINE MARIJUANA (THC) SCREEN NEGATIVE; URINE METHADONE SCREEN NEGATIVE; URINE PHENCYCLIDINE SCREEN NEGATIVE
[2020-02-14 08:01] LABS: HEMATOCRIT 38.2 % (36.0-47.0); HEMOGLOBIN 12.8 g/dL (12.0-15.5); MEAN CORPUSCULAR HEMOGLOBIN 30.3 pg (27.0-33.4); MEAN CORPUSCULAR HGB CONC 33.5 g/dL (32.0-36.0); MEAN CORPUSCULAR VOLUME 91 fl (80-97); PLATELET COUNT 209 10^3/uL (150-450); RED BLOOD COUNT 4.22 10^6/uL (3.72-5.28); RED CELL DISTRIBUTION WIDTH 14.7 % (11.5-14.0); WHITE BLOOD COUNT 12.5 10^3/uL (4.0-10.5)
[~2020-02-15 08:34] MED LIST: CEFAZOLIN SODIUM 2 GM in DEXTROSE 5%-WATER 100 ML IV PRN; LACTATED RINGERS 1000 ML IV PRN; LIDOCAINE 0.5% INJ-PF (5 MG/ML) 50 ML SDV SUBCUT PRN; RINGERS SOLUTION,LACTATED 1,500 ML IV PRN
[2020-02-15] MEDS ORDERED: KETOROLAC TROMETHAMINE INJ/PF 30 MG/1 ML SDV ONE (10:28)
[2020-02-15] MEDS ORDERED: OXYTOCIN 10 UNIT/ML VIAL ONE (10:28)
[2020-02-15] MEDS ORDERED: EPHEDRINE SULFATE INJ 50 MG/1 ML AMPULE ONE (10:28)
[2020-02-15] MEDS ORDERED: FENTANYL CITRATE INJ/PF 100 MCG/2 ML AMPUL ONE (10:28)
[2020-02-15] MEDS ORDERED: MORPHINE SULFATE 10 MG/ML INJ ONE ×2 (10:29→13:17)
[2020-02-15] MEDS ORDERED: MIDAZOLAM 2 MG/2 ML INJ ONE (10:29)
[2020-02-15] MEDS ORDERED: ONDANSETRON HCL INJ/PF 4 MG/2 ML SDV ONE (10:29)
[2020-02-15] MEDS ORDERED: ACETAMINOPHEN 1,000 MG/100 ML RTUPB IV ONE (10:29)
[2020-02-15] MEDS ORDERED: PHENYLEPHRINE HCL INJ/PF 10 MG/1 ML SDV ONE (10:29)
[2020-02-15] MEDS ORDERED: ACETAMINOPHEN 1,000 MG/100 ML RTUPB IV PRN (10:49)
[2020-02-15] MEDS ORDERED: RINGERS SOLUTION,LACTATED 1,000 ML IV PRN (10:49)
[2020-02-15] MEDS ORDERED: SIMETHICONE 80 MG TAB.CHEW PO PRN (10:49)
[2020-02-15] MEDS ORDERED: ACETAMINOPHEN 325 MG TABLET PO PRN (10:49)
[2020-02-15] MEDS ORDERED: MEASLES,MUMPS&RUBELLA VACC/PF 0.5 ML VIAL SUBCUT PRN (10:49)
[2020-02-15] MEDS ORDERED: DIPH/PERTUSS(ACELL)/TETANUS VAC/PF 0.5 ML SYR (>=10YO) IM PRN (10:49)
[2020-02-15] MEDS ORDERED: PROMETHAZINE HCL INJ 25 MG/1 ML VIAL IV PRN ×3 (10:49→11:31)
[2020-02-15] MEDS ORDERED: OXYTOCIN/0.9 % SODIUM CHLORIDE 30 UNIT/500 ML RTUINJ IV PRN (10:49)
[2020-02-15] MEDS ORDERED: HYDROMORPHONE HCL INJ/PF 2 MG/ML AMPULE IV PRN (10:49)
[2020-02-15] MEDS ORDERED: OXYCODONE-ACETAMINOPHEN 5-325 MG TABLET PO PRN (10:49)
[2020-02-15] MEDS ORDERED: ONDANSETRON HCL INJ/PF 4 MG/2 ML SDV IV PRN (11:31)
[2020-02-15] MEDS ORDERED: DIPHENHYDRAMINE HCL 50 MG/ML VIAL IV PRN (11:31)
[2020-02-15] MEDS ORDERED: MEPERIDINE HCL/PF INJ 25 MG/1 ML DISP.SYRIN IV PRN (11:31)
[2020-02-15] MEDS ORDERED: FENTANYL CITRATE INJ/PF 100 MCG/2 ML AMPUL IV PRN ×3 (11:31)
--- NOTE | 2020-02-15 12:10 | Operative Report ---
Operative Report DATE OF SURGERY: 02/15/20 PREOPERATIVE DIAGNOSIS: Intrauterine at 39+ weeks EGA. Prior x1. Unwanted fertility POSTOPERATIVE DIAGNOSIS: Same as above OPERATION: Repeat section and bilateral tubal ligation SURGEON: AURE ANTONIO ANESTHESIA: Spinal TISSUE REMOVED OR ALTERED: Placenta COMPLICATIONS: None ESTIMATED BLOOD LOSS: 750 cc INTRAOPERATIVE FINDINGS: Normal appearing uterus, bilateral fallopian tubes and ovaries.Clear amniotic fluid. Viable female with Apgars of 9/9 at 1/5 minutes respectfullly. Nuchal cord x1 and arm around left arm PROCEDURE: IV fluids: per anesthesia record Urinary output: 150 cc Position: To recovery room in stable condition Description of procedure: The patient was taken to the operating room and spinal anesthesia was administered and found to be adequate. She was then placed on the OR table in the supine position with a slight leftward tilt. Patient was prepped and draped in usual sterile fashion. Ancef 2 gms was given IV prior to the procedure for infection prophylaxis. Timeout was taken. A Pfannenstiel skin incision was then made approximately 3 cm above the pubic symphysis and carried down to level the rectus fascia. The rectus fascia was then nicked in the midline with a scalpel and the fascial incision was extended laterally with use of curved Luis scissors. The rectus fascia was then grasped with 2 Kocker clamps elevated and the underlying rectus muscle was dissected off both bluntly and sharply. Scar tissue noted between rectus fascia and rectus muscles. Any bleeding controlled with cautery. The rectus muscles were then split in the midline and the peritoneum was entered. The peritoneal incision was then extended by manually stretching the peritoneum. The bladder blade was positioned. Bladder flap created and bladder blade replaced. The bladder was noted to be out of harm's way. A scalpel was then used in the lower uterine for the hysterotomy, slowly until amniotomy was obtained a large amount of fluid was noted. The uterine incision was then manually stretched. The infant was noted to be in vertex postion but unengaged in the pelvis. The head was delivered with minmal difficulty. Nuchal x1 easily reversed. The shoulders and the rest of the body followed immediately. The cord was cut clamped and the was handed off to the nurse awaiting. was crying prior to hand off. The placenta was manually delivered. Using a lap gauze the uterus was cleared of all clots and debris. The uterus was then exteriorized and a bladder blade was repositioned. The uterine incision was then closed with 0 Chromic suture in a running locked fashion. A second layer of the same suture was used in a running locked imbricated fashion. The uterine incision was inspected and noted to be hemostatic. The posterior aspect of the uterus was then inspected and anatomy was seen as above. The right fallopian tube was identified and traced to the fimbriated end. A filshie clip was placed approximately 2 cm from the uterine cornu. Clip surrounded the tube in its entirety. Blanching noted and hemostasis. The left fallopian tube was identified and traced to the fimbriated end. A filshie clip was placed approximately 2 cm from the uterine cornu. Clip surrounded the tube in its entirety. Blanching noted and hemostasis. The uterus was returned to its normal anatomic position within the abdominal cavity. Warm saline irrigation was used to clear all clots and debris from the abdomen. The uterine incision was inspected once more and noted to remain hemostatic. The bladder blade was removed and the peritoneum was closed with 2-0 chromic in a running fashion. The rectus muscles were then reapproximated and the rectus fascia was closed with a #1 PDS in a running fashion. The subcutaneous tissue was then inspected and any bleeding was controlled with Bovie electrocautery. The subcutaneous tissue was then closed with 2-0 Plain Gut suture in a running fashion. The skin was then closed with 3-0 Monocryl in a running subcuticular fashion. The skin incision was then clean dried and Dermabond was applied over the skin incision. All instrument sponge and needle counts were correct x3 for the procedure the patient tolerated the procedure well. She will proceed to recovery room in stable condition
--- NOTE | 2020-02-15 12:12 | PDOC DELIVERY SUMMARY ---
Delivery Summary - Maternal Hx : II Hx Para: I Hx # Term Pregnancies: 1 Hx # Pregnancies: 0 Hx Total # of Abortions (Sponateous & Elective): 0 Number of Living Children: 1 GREGORY: 02/22/20 Gestational Age: 39 Risk Factors: Previous - Delivery Pattern Other: Cat 1 NST prior to procedure Support Person Present: Yes Location: OR : Scheduled Placenta: Within Normal Limits Placenta Description: grossly normal Number of Vessels (Cord): 3 Nuchal Cord: Yes - easily reduced Estimated Blood Loss: 750 cc - Medications Type of Anesthesia:: Spinal - Delivery Personnel MD: AURE ANTONIO
[2020-02-15] MEDS: MORPHINE SULFATE 10 MG/ML INJ IV PRN ×3 (13:20→13:52)
--- NOTE | 2020-02-15 14:27 | Birth Certificate Data ---
Cert Data Datetime Report Generated by CPN: 02/15/2020 14:27 CERTIFICATE DATA 48a. Number of Prev Live Births: 2 (02/15/2020 11:25:Elisha Sales, RN) 48b. Now Livin (02/15/2020 11:25:Elisha Sales, RN) 48c. Live Births Now : 0 (02/15/2020 11:25:QS system process) RISK FACTORS IN THIS 49c. Previous Births: 0 (02/15/2020 11:25:Elisha Sales, RN) Mother's Height 50b. Height Inches: 63 (02/15/2020 10:30:QS system process) Infections Present/Treated Results this Hospital Visit : Negative (02/15/2020 11:25:Elisha Sales, RN) Results this Hospital Visit: Negative (02/15/2020 11:25:Elisha Sales, RN) Results this Hospital Visit: Negative (02/15/2020 11:25:Elisha Sales, RN) 53e. Hepatitis C: Negative (02/15/2020 11:25:Elisha Sales RN) 53j. Test Result: Negative (02/15/2020 11:25:Elisha Sales, RN) Onset of Labor 56a. PROM >12 Hrs: 0.02 (02/15/2020 11:25:QS system process) 57a. Induction of Labor: N/A (02/15/2020 11:25:Elisha Garcia RN) 57c. Non-Vertex Presentation A: Vertex (02/15/2020 11:25:Elisha Garcia RN) 57d. Steroids - Lung Mat: None (02/15/2020 11:25:Elisha Garcia RN) 57d. Steroids - Lung Mat: Not Applicable (02/15/2020 11:25:Elisha Garcia RN) 57f. Mat [place] or Temp >100.4: 97.4 (Annotations: Data stored by CPN on behalf of user) (02/15/2020 11:25:Elisha Garcia RN) 57g. Moderate/Heavy Meconium: Clear (02/15/2020 11:25:Elisha Garcia RN) 57h. Intolerance of Labor: Repeat Elective (02/15/2020 11:25:Elisha Garcia RN) : N/A (02/15/2020 11:25:Elisha Garcia RN) Method of Delivery 58a. Forceps - Unsuccessful A: N/A (02/15/2020 11:25:Elisha Garcia RN) 58b. Vacuum - Unsuccessful A: N/A (02/15/2020 11:25:Elisha Jose RN) 58c. Presentation at 58c. Presentation at - A : Vertex (02/15/2020 11:25:Elisha Garcia RN) 58c. Presentation at - A : N/A [facility] 58c. Presentation at - A : Cephalic (02/15/2020 11:25:Nasir Cruz [facility]) Final Route and Method of Del 58d. Baby A Route/Delivery: (02/15/2020 11:25:Nasir Cruz [facility]) 58e. Trial of Labor Attempted: No (02/15/2020 11:25:Elisah Garcia RN) 58e. Trial of Labor Attempted A: N/A (02/15/2020 11:25:Elisha Garcia RN) 58e. Trial of Labor Attempted B: N/A (02/15/2020 11:25:Elisha Garcia RN) Birthweight Baby A: 3320 (02/15/2020 11:25:Carolyn Page RN) 60a. Pounds : 7 (02/15/2020 11:25:QS system process) 60b. Ounces: 5 (02/15/2020 11:25:QS system process) 61. GA at Delivery Baby A: 39.0 (02/15/2020 11:25:GENESIS Beckford) : Full Term- 39- 40.6 Weeks (02/15/2020 11:25:QS system process) 62a. 5 Minute Baby A: 9 (02/15/2020 11:25:QS system process)
--- NOTE | 2020-02-15 14:27 | Delivery Summary ---
Del Sum A-C Datetime Report Generated by CPN: 02/15/2020 14:26 DELIVERY PERSONNEL DELIVERY PERSONNEL: [id number] Delivery Doctor:: Cyndee Gardner MD COSMETIC SALES ADVISOR:: Maribell Canales CRNA Circulation Representative:: Elisha Garcia RN Neonatal Nurse Practitioner:: GENESIS Duobn Timber Harvester Operator/STATISTICAL METHODS PROFESSOR: Rissa Nguyen, [employer]ER Timber Harvester Operator/STATISTICAL METHODS PROFESSOR: Monika Banegas, COMMERCIAL [employer]AGE BR[employer]ER MATERNAL INFORMATION Delivery Anesthesia: Spinal Medications After Delivery: Pitocin Drip 20 Units/1000ml NSS Meds After Delivery Comment: Pitocin 20u/1000ml X2 Delivery QBL: 295 Maternal Complications: None LABOR SUMMARY No. Babies in Womb: 1 Attempted: No LABOR INFORMATION Reason for Induction: Not Applicable Oxytocin: N/A Group B Beta Strep: Negative Name of Antibiotic Given: NA Steroids Given: None Reason Steroids Not Administered: Not Applicable MEMBRANES Membranes Rupture Method: Artificial Rupture of Membranes: 02/15/2020 11:19 Length of Rupture (hr): 0.02 Amniotic Fluid Color: Clear Amniotic Fluid Amount: Large Amniotic Fluid Odor: Normal STAGES OF LABOR Stage 3 hr: 0 Stage 3 min: 2 VAGINAL DELIVERY Laceration Extension #1: N/A CSECTION DELIVERY Primary Indication: Repeat Elective Secondary Indication: N/A CSection Urgency: Scheduled CSection Incidence: Repeat Labor: No Labor Elective: Elective CSection Incision: Lower Uterine Transverse Other Sterilization Procedure: BTL BABY A INFORMATION Infant Delivery Date/Time: 02/15/2020 11:20 Method of Delivery: Nurse Controlled Delivery: No Born in Route : No : N/A Forceps: N/A Vacuum Extraction: N/A Shoulder Dystocia : No PRESENTATION/POSITION BABY A Presentation: Cephalic Cephalic Presentation: Vertex Breech Presentation: N/A PLACENTA INFORMATION BABY A Placenta Delivery Time : 02/15/2020 11:22 Placenta Method of Delivery: Manual Removal Placenta Status: Delivered SCORES BABY A Heart Rate 1 min: >100 bpm Resp Effort 1 min: Good Cry Reflex Irritability 1 min: Cough or Sneeze or Pulls Away Muscle Tone 1 min: Active Motion Color 1 min: Body [place], Extremities Blue Resuscitation Effort 1 min: Tactile Stimulation SCORE 1 MIN: 9 Heart Rate 5 min: >100 bpm Resp Effort 5 min: Good Cry Reflex Irritability 5 min: Cough or Sneeze or Pulls Away Muscle Tone 5 min: Active Motion Color 5 min: Body [place], Extremities Blue Resuscitation Effort 5 min: Tactile Stimulation SCORE 5 MIN: 9 INFORMATION BABY A Gestational Age at Delivery: 39.0 Gestational Status: Full Term- 39- 40.6 Weeks Infant Outcome : Liveborn Infant Condition : Stable Infant Sex: Female IDENTIFICATION BABY A Verification Date/Time: 02/15/2020 11:23 ID Band Number: [id number] Mother's Name Verified: Yes Infant RN Verifying : Fabian Garcia RN Additional Verifying Personnel: Silverio Casey, RN WEIGHT/LENGTH BABY A Birthweight (gm): 3320 Weight (lb): 7 Weight (oz): 5 Infant Length (in): 20.00 Length (cm): 50.80 CORD INFORMATION BABY A No. Cord Vessels: 3 Nuchal Cord : Around Neck x1, Loose Cord Blood Taken: Yes-For Eval (Mom's Blood Type - or O+) Infant Suction: Mouth; Nose ASSESSMENT BABY A Skin to Skin: Yes Skin to Skin Time (min): 75 BABY B INFORMATION : N/A
[2020-02-15] MEDS: OXYCODONE-ACETAMINOPHEN 5-325 MG TABLET PO PRN ×2 (15:51→21:43)
[2020-02-15] MEDS: DOCUSATE SODIUM 100 MG CAPSULE PO SCH (18:09)
[2020-02-15] MEDS: KETOROLAC TROMETHAMINE INJ/PF 30 MG/1 ML SDV IV SCH (18:10)
[2020-02-16] MEDS: KETOROLAC TROMETHAMINE INJ/PF 30 MG/1 ML SDV IV SCH ×2 (01:25→09:46)
[2020-02-16] MEDS: OXYCODONE-ACETAMINOPHEN 5-325 MG TABLET PO PRN ×4 (05:04→23:58)
[2020-02-16 08:39] LABS: HEMATOCRIT 31.6 % (36.0-47.0); HEMOGLOBIN 10.8 g/dL (12.0-15.5); MEAN CORPUSCULAR HEMOGLOBIN 30.5 pg (27.0-33.4); MEAN CORPUSCULAR VOLUME 90 fl (80-97); PLATELET COUNT 154 10^3/uL (150-450); RED BLOOD COUNT 3.53 10^6/uL (3.72-5.28); RED CELL DISTRIBUTION WIDTH 14.3 % (11.5-14.0); WHITE BLOOD COUNT 12.6 10^3/uL (4.0-10.5)
[2020-02-16] MEDS: PRENATAL VITAMIN W DHA CAPSULE PO SCH (09:45)
[2020-02-16] MEDS: DOCUSATE SODIUM 100 MG CAPSULE PO SCH ×2 (09:45→17:04)
--- NOTE | 2020-02-16 12:34 | PDOC PROGRESS REPORT ---
Subjective-OB Progress Note for:: 02/16/20 Subjective: Pt doing well, no concerns. Bleeding normal, reg diet and voids w/o difficulty. Physical Exam (OB) Vital Signs: Temp Pulse Resp BP Pulse Ox 98.1 F 67 17 116/69 97 02/16/20 11:28 02/16/20 11:28 02/16/20 11:28 02/16/20 11:28 02/16/20 11:28 Intake & Output 02/15/20 02/16/20 02/17/20 06:59 06:59 06:59 Intake Total 2208 Output Total 700 200 Balance 1508 -200 Weight 72.575 kg - Dressing Removed: No Incision: Well Approximated Closure Type: Surgical Glue - Maternal Morbidity 59. Maternal Morbidity (serious complications experinced by the mother associated with labor and delivery: None of the above - Lochia Lochia Amount: Small 10-25 ml Lochia Color: Rubra/Red - Abdomen Description: Firm Hernia Present: No Fundal Description: Firm Fundal Height: u/u - u/2 Objective-Diagnostic Laboratory: 02/16/20 07:59 02/16/20 07:59 WBC 12.6 H RBC 3.53 L Hgb 10.8 L Hct 31.6 L MCV 90 MCH 30.5 MCHC 34.0 RDW 14.3 H Plt Count 154 Assessment and Plan(PN) - Assessment and Plan (1) Normal course Is this a current diagnosis for this admission?: Yes (2) S/P repeat low transverse Is this a current diagnosis for this admission?: Yes - Time Spent with Patient Time with patient: Less than 15 minutes Medications reviewed and adjusted accordingly: Yes - Disposition Anticipated Discharge Disposition: Home, Self Care Anticipated Discharge Timeframe: within 48 hours
[2020-02-16] MEDS: IBUPROFEN 800 MG TABLET PO SCH (22:51)
[2020-02-17] MEDS: OXYCODONE-ACETAMINOPHEN 5-325 MG TABLET PO PRN ×2 (04:02→08:46)
[2020-02-17] MEDS: IBUPROFEN 800 MG TABLET PO SCH ×2 (05:24→13:28)
[2020-02-17] MEDS: DOCUSATE SODIUM 100 MG CAPSULE PO SCH (09:00)
[2020-02-17] MEDS: PRENATAL VITAMIN W DHA CAPSULE PO SCH (09:00)
--- NOTE | 2020-02-17 09:00 | PDOC DISCHARGE SUMMARY ---
Impression - Admit/DC Date/PCP Admission Date/Primary Care Provider: 02/15/20 08:34 CHRISTOPHER APODACA Discharge Date: 02/17/20 - Discharge Diagnosis (1) Normal course Is this a current diagnosis for this admission?: Yes (2) S/P repeat low transverse Is this a current diagnosis for this admission?: Yes - Additional Information Resuscitation Status: Full Code Discharge Diet: Regular Discharge Activity: Balance Activity w/Rest, Pelvic Rest Referrals: KAITY [facility]ALLS ARNP [Primary Care Provider] - Prescriptions: Oxycodone HCl/Acetaminophen [Percocet 5-325 mg Tablet] 1 tab PO Q4HP PRN #30 tablet PRN Reason: For Pain Scale 3-5 Ibuprofen [Motrin 800 mg Tablet] 800 mg PO Q8HP PRN #60 tablet PRN Reason: Home Medications: Ibuprofen [Motrin 800 mg Tablet] 800 mg PO Q8HP PRN #60 tablet 02/17/20 Oxycodone HCl/Acetaminophen [Percocet 5-325 mg Tablet] 1 tab PO Q4HP PRN #30 tablet 02/17/20 HPI Gestational Age: 39 Reason(s) for Admission: Ceasarean Section-Repeat Procedures: None Intrapartum Procedure(s): : Low Cervical, Transverse Hospital Course 59. Maternal Morbidity (serious complications experinced by the mother associated with labor and delivery: None of the above Results Laboratory Results: WBC 12.6 10^3/uL (4.0-10.5) H 02/16/20 07:59 RBC 3.53 10^6/uL (3.72-5.28) L 02/16/20 07:59 Hgb 10.8 g/dL (12.0-15.5) L 02/16/20 07:59 Hct 31.6 % (36.0-47.0) L 02/16/20 07:59 MCV 90 fl (80-97) 02/16/20 07:59 MCH 30.5 pg (27.0-33.4) 02/16/20 07:59 MCHC 34.0 g/dL (32.0-36.0) 02/16/20 07:59 RDW 14.3 % (11.5-14.0) H 02/16/20 07:59 Plt Count 154 10^3/uL (150-450) 02/16/20 07:59 Lymph % (Auto) 17.4 % (13-45) 02/09/20 10:35 [place] % (Auto) 6.6 % (3-13) 02/09/20 10:35 Eos % (Auto) 0.8 % (0-6) 02/09/20 10:35 Baso % (Auto) 0.8 % (0-2) 02/09/20 10:35 Absolute Neuts (auto) 8.2 10^3/uL (1.7-8.2) 02/09/20 10:35 Absolute Lymphs (auto) 1.9 10^3/uL (0.5-4.7) 02/09/20 10:35 Absolute Monos (auto) 0.7 10^3/uL (0.1-1.4) 02/09/20 10:35 Absolute Eos (auto) 0.1 10^3/uL (0.0-0.6) 02/09/20 10:35 Absolute Basos (auto) 0.1 10^3/uL (0.0-0.2) 02/09/20 10:35 Seg Neutrophils % 74.4 % (42-78) 02/09/20 10:35 Urine Color CHARITY 02/09/20 10:30 Urine Appearance SLIGHTLY-CLOUDY 02/09/20 10:30 Urine pH 6.0 (5.0-9.0) 02/09/20 10:30 Ur Specific [place] 1.020 02/09/20 10:30 Urine Protein 30 mg/dL (NEGATIVE) H 02/09/20 10:30 Urine Glucose (UA) NEGATIVE mg/dL (NEGATIVE) 02/09/20 10:30 Urine Ketones NEGATIVE mg/dL (NEGATIVE) 02/09/20 10:30 Urine Blood SMALL (NEGATIVE) H 02/09/20 10:30 Urine Nitrite NEGATIVE (NEGATIVE) 02/09/20 10:30 Urine Bilirubin NEGATIVE (NEGATIVE) 02/09/20 10:30 Urine Urobilinogen 4.0 mg/dL (<2.0) H 02/09/20 10:30 Ur Leukocyte Esterase LARGE (NEGATIVE) H 02/09/20 10:30 Urine WBC (Auto) 2 /HPF 02/09/20 10:30 Urine RBC (Auto) 8 /HPF 02/09/20 10:30 Squamous Epi Cells Auto 4 /HPF 02/09/20 10:30 Urine Mucus (Auto) FEW /LPF 02/09/20 10:30 Urine Ascorbic Acid NEGATIVE (NEGATIVE) 02/09/20 10:30 Urine Opiates Screen NEGATIVE 02/09/20 10:30 Urine Methadone Screen NEGATIVE 02/09/20 10:30 Ur Barbiturates Screen NEGATIVE 02/09/20 10:30 Ur Phencyclidine Scrn NEGATIVE 02/09/20 10:30 Ur Amphetamines Screen NEGATIVE 02/09/20 10:30 U Benzodiazepines Scrn NEGATIVE 02/09/20 10:30 Urine Cocaine Screen NEGATIVE 02/09/20 10:30 U Marijuana (THC) Screen NEGATIVE 02/09/20 10:30 COVID-19 Source See comment 02/09/20 10:45 COVID-19 (ENRIQUE) Not Detected (Not Detect) 02/09/20 10:45 Blood Type A NEGATIVE 02/13/20 16:15 Antibody Screen POSITIVE 02/13/20 16:15 Antibody Identification RHOGAM INDUCED ANTI-D 02/13/20 16:15 Crossmatch See Detail 02/13/20 16:15 Plan Plan of Treatment: f/u at [facility] as scheduled for incision check Time Spent: Less than 30 Minutes
[2020-02-17 11:35] VITALS: BP 125/68
== END 2020-02-17 14:01 | disposition home or self-care (01) | DRG 785 ==
LOC: EEVIPCON 08:34 → 2S 08:34
PROVIDERS: ADMIT Obstetrics & Gynecology; ATTEND Obstetrics & Gynecology
PROC: 10D00Z1 Extraction of Products of Conception, Low, Open Approach (ICD-10-PCS; principal; 2020-02-15)
PROC: 0UL70CZ Occlusion of Bilateral Fallopian Tubes with Extraluminal Device, Open Approach (ICD-10-PCS; 2020-02-15)
DX: O34.211 Maternal care for low transverse scar from previous cesarean delivery (principal); Z30.2 Encounter for sterilization; O99.334 Smoking (tobacco) complicating childbirth; F17.210 Nicotine dependence, cigarettes, uncomplicated; O69.81X0 Labor and delivery complicated by cord around neck, without compression, not applicable or unspecified; Z3A.39 39 weeks gestation of pregnancy; Z28.21 Immunization not carried out because of patient refusal; Z37.0 Single live birth
CPT/HCPCS: 1961; 36415; 80307; 81001; 85025; 85027; 86850; 86870; 86900; 86901; 86920; 86922; 87635; 90715; 94760; 94799; C9803; J0131; J0690; J1885; J2250; J2270; J2370; J2405; J2590; J3010; J3490; J7060; J7120